=== PATIENT | female | born 1990 | race Caucasian/White ===

== ENCOUNTER 2022-01-16 11:15 | Outpatient (RCR) | payer OTHER, SELFPAY ==
--- NOTE | 2021-12-16 09:29 | PC.NURSE ---
Patient did not show up to community morning meeting and did not call staff by 0915. Patient called at 0925 and spoke to Eva stating she did not understand the email that was sent to her. Patient scheduled to start the program tomorrow at 0900. Polly [facility] is aware.
[2021-12-17 12:47] VITALS: BMI 52.2
--- NOTE | 2021-12-17 13:18 | PC.ADMIT ---
Patient is a 31 year old single female with a dx of MDD recurrent, severe who was referred by her prescriber from [facility] to PHP d/t increase in depression with passive SI no plan or intent, increased anxiety and PTSD sxs. Patient reports poor sleep and appetite. Reports she is taking a leave of absence from work to work on her mental health. 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 Patient reports she has been isolating. Patient denied history of SA or IPLOC. Patient reports this past April she had thoughts to overtake her Clonazepam medications however patient stated, the thoughts freaked me out and I called my mother immediately . Patient stated she has no intent as there are things she wants to do in life. Patient has a history of trauma. Patient is alert and oriented x4. Calm and cooperative. Presents with depressed mood and affect. Denied SI at present. Emailed patient a copy of her safety plan if needed. Patient also has the crisis number if needed. Patient reports her mother who lives [address] from her is supportive. Medications reconciled with patient and patient's pharmacy. Patient reports taking her medications as prescribed.
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
--- NOTE | 2021-12-18 13:05 | PM.EVENT ---
Event Note Date of Service: 12/18/21 Event Note: Letter provided to patient for medical leave, per patient's request.
--- NOTE | 2021-12-19 08:07 | PC.NURSE ---
case opened in treatment team
--- NOTE | 2021-12-24 14:15 | HO.PHPPROGNO ---
Subjective Subjective Date of Service: 12/24/21 Reason For Visit: depression,anxiety,OCD Guardianship: No Medical Problems Affecting Mental Status: No Interim History: Describes mood as ?I am okay, I feel a little bit better ?. Reports she feels current medication regimen is working well, does not want any changes. No SI reported, no safety concerns. Medication Compliance: Yes Side effects from medications: No Attending Groups: Yes Review of Systems Acute medical concerns: No Medical Review of Systems: unchanged Review of Systems Review of Systems Yes all other systems are reviewed and are negative Constitutional: Reports no additional constitutional complaints Mental Status Exam Mental Status Exam Narrative: NAD. No perceptual disturbances noted, fully attentive during encounter. No SI/HI reported, no safety concerns. Patient Appearance: Well Grooomed and Appropriate Patient Orientation: Person, Place, Time and Situation Level of Consciousness: Awake, Appropriate and Alert Patient Behavior: Appropriate, Cooperative and Good Eye Contact Mood Description: Depressed and Anxious Affect Description: Depressed Patient Cognition Impaired: No Ability to Follow Directions: Good Speech Pattern: Clear, Appropriate and Coherent Hallucinations: None Delusions: Not Present Perceptual Disturbances: Depersonalization Thought Process: Intact Depressive Symptoms: Increased Anxiety, Difficulty Sleeping, Loss of Int. in Activity, Isolating-Friends/Family, Feelings of Guilt, Unhappiness and Increased Fatigue Judgement: Fair Diagnostics Vital Signs (24Hr): BMI result Body Mass Index 52.2 Assessment & Plan Assessment & Plan (1) Major depressive disorder, single episode, severe without psychotic features: Status: Acute Code(s): F32.2 - Major depressive disorder, single episode, severe without psychotic features Assessment and Plan: Patient reports she feels she is beginning to improve regarding her symptoms of depression, anxiety, OCD. She states she is finding groups helpful. No SI/HI reported. Reports that she feels current medication regimen is effective, does not want any changes at this time. Plans to continue with groups/program, as it is helping. (2) Generalized anxiety disorder: Status: Acute Code(s): F41.1 - Generalized anxiety disorder (3) Post-traumatic stress disorder, chronic: Status: Acute Code(s): F43.12 - Post-traumatic stress disorder, chronic (4) Obsessive-compulsive disorder, unspecified: Status: Acute Code(s): F42.9 - Obsessive-compulsive disorder, unspecified Plan 1. Continue with current [facility] plan of care. 2. Continue with current medication regimen as prescribed by outpatient provider. 3. Follow-up as per protocol. Patient educated on: diagnosis, medication risk/benefits and therapeutic strategies Informed Consent: understands Reason for contiued partial hosp. stay Substantial Risk for: harm to self, inability to function and med/psych decompensation Certification I certify that partial hospital treatment is medically necessary due to the symptoms and problems resulting from the patient's mental illness and the failure to treat the patient at the partial hospital level of care would likely result in the patient requiring inpatient psychiatric care which could not be prevented at a less intensive level of care. I spent minutes with the patient and/or on the patient floor today, greater than?50% of which was spent counseling/coordinating care. Discharge Plan Discharge Attending provider: Moses Villatoro Medications: No Action desog-e.estradiol/e.estradiol [Kariva (28)] 0.15-0.02 mgx21 /0.01 mg x 5 Tablet 1 tab PO DAILY 0RF clonazepam 1 mg Tablet 1 mg PO BID PRN (Reason: Anxiety) 0RF omeprazole 40 mg Capsule,Delayed Release(Dr/Ec) 40 mg PO DAILY 0RF fluvoxamine 100 mg Tablet 100 mg PO BID 0RF fluticasone propionate 50 mcg/actuation [place],Suspension 2 spray INTRANASAL DAILY 0RF Rx Instructions: administer into each nostril bupropion HCl [Wellbutrin XL] 150 mg Tablet Extended Release 24 Hr 150 mg PO QAM 0RF eszopiclone 1 mg Tablet 1 mg PO BEDTIME 0RF Label Comments: Patient has not started. melatonin 5 mg Tablet 5 mg PO BEDTIME PRN (Reason: Insomnia) 0RF cholecalciferol (vitamin D3) [Vitamin D3] 125 mcg (5,000 unit) Tablet 125 mcg PO DAILY 0RF Telehealth Telehealth Location of provider rendering services: practice address Location of patient: address on file Patient Identification confirmed using: Name, : Yes Telehealth method: video Patient verbally consented to treatment: Yes Patient verbally consented to billing insurance company: Yes Patient informed of any privacy concerns related to visit: Yes Minutes spent on Phone/Video with Pt.: 15
--- NOTE | 2021-12-26 14:59 | PC.NURSE ---
I called [facility] because the clients therapist left the agency and made a referral for another but it is taking a long time to secure a new therapist. I left a message with the clinical director , Juana chaparro, explaining that the client will be discharged from [facility] 01/02/22 and if possible we will need to have an appointment scheduled with a therapist by then.
--- NOTE | 2021-12-29 15:20 | P.PNPSP_ITS ---
Subjective Subjective Date of Service: 12/29/21 Reason For Visit: depression,anxiety,OCD Medical Problems Affecting Mental Status: No Interim History: Describes mood as ?not doing great ?. Reports sleeping all day, due to poor sleep during night. Nightmares. States increased anxiety, afraid to leave house, afraid to go back to work, cannot even grocery shop. Describes feeling like a failure, hopeless, helpless. Medication Compliance: Yes Side effects from medications: No Attending Groups: Yes Review of Systems Acute medical concerns: No Medical Review of Systems: unchanged Review of Systems Review of Systems Yes all other systems are reviewed and are negative Constitutional: Reports no additional constitutional complaints Mental Status Exam Mental Status Exam Narrative: NAD. No SI/HI reported, no safety concerns. Patient Appearance: Well Grooomed and Appropriate Patient Orientation: Person, Place, Time and Situation Level of Consciousness: Awake, Appropriate and Alert Patient Behavior: Appropriate, Cooperative and Good Eye Contact Mood Description: Depressed and Anxious Affect Description: Depressed and Anxious Patient Cognition Impaired: No Ability to Follow Directions: Good Speech Pattern: Clear, Appropriate and Coherent Memory Description: Intact Hallucinations: None Delusions: Not Present Perceptual Disturbances: Depersonalization Thought Process: Intact Thought Content: positive for Intact Depressive Symptoms: Increased Anxiety, Difficulty Sleeping, Loss of Int. in Activity, Hopelessness, Isolating-Friends/Family, Feelings of Guilt, Unhappiness, Increased Fatigue and Loss of Energy Judgement: Fair Diagnostics Vital Signs (24Hr): BMI result Body Mass Index 52.2 Assessment & Plan Assessment & Plan (1) Major depressive disorder, single episode, severe without psychotic features: Status: Acute Code(s): F32.2 - Major depressive disorder, single episode, severe without psychotic features Assessment and Plan: Reports feeling overwhelmed, difficulty sleeping, which is affecting her mood. Reports she has been told that she cannot make an appointment at [facility] until programs over here. We discussed various medications, she has taking Abilify as an adjunct of medication for long time, was weaned off of it due to side effects. We discussed several options, including switching both doses of Luvox to bedtime, to see if it helps improve sleep, or adding low-dose Risperdal 0.5 mg at bedtime. She was willing to try Risperdal at this time. Patient also has [facility] paperwork to be completed. (2) Generalized anxiety disorder: Status: Acute Code(s): F41.1 - Generalized anxiety disorder Assessment and Plan: Reports increased anxiety, panic, agoraphobia. Discussed Wellbutrin, reports has been taking Wellbutrin past 6 months, and this has been recent. Does have p.r.n. Klonopin, has been utilizing. (3) Post-traumatic stress disorder, chronic: Status: Acute Code(s): F43.12 - Post-traumatic stress disorder, chronic Assessment and Plan: Nightmares, racing thoughts, related to PTSD. Discussed adding low-dose Risperdal at bedtime, as it will help with racing thoughts, sleep. (4) Obsessive-compulsive disorder, unspecified: Status: Acute Code(s): F42.9 - Obsessive-compulsive disorder, unspecified Assessment and Plan: Reports Luvox is working well to manage OCD symptoms at this time. Plan 1. Continue with current [facility] plan of care. 2. Start risperidone 0.5 mg at bedtime. 3. Will follow-up as per protocol. Patient educated on: diagnosis, medication risk/benefits and therapeutic strategies Informed Consent: understands Reason for contiued partial hosp. stay Substantial Risk for: harm to self, inability to function, rapid decompensation and med/psych decompensation Certification I certify that partial hospital treatment is medically necessary due to the symptoms and problems resulting from the patient's mental illness and the failure to treat the patient at the partial hospital level of care would likely result in the patient requiring inpatient psychiatric care which could not be prevented at a less intensive level of care. I spent minutes with the patient and/or on the patient floor today, greater than?50% of which was spent counseling/coordinating care. Discharge Plan Discharge Attending provider: Moses Villatoro Medications: New risperidone 0.5 mg tablet 0.5 mg PO BEDTIME 7 Days Qty: 7 0RF No Action desog-e.estradiol/e.estradiol [Ociva (28)] 0.15-0.02 mgx21 /0.01 mg x 5 Tablet 1 tab PO DAILY 0RF clonazepam 1 mg Tablet 1 mg PO BID PRN (Reason: Anxiety) 0RF omeprazole 40 mg Capsule,Delayed Release(Dr/Ec) 40 mg PO DAILY 0RF fluvoxamine 100 mg Tablet 100 mg PO BID 0RF fluticasone propionate 50 mcg/actuation [place],Suspension 2 spray INTRANASAL DAILY 0RF Rx Instructions: administer into each nostril bupropion HCl [Wellbutrin XL] 150 mg Tablet Extended Release 24 Hr 150 mg PO QAM 0RF eszopiclone 1 mg Tablet 1 mg PO BEDTIME 0RF Label Comments: Patient has not started. melatonin 5 mg Tablet 5 mg PO BEDTIME PRN (Reason: Insomnia) 0RF cholecalciferol (vitamin D3) [Vitamin D3] 125 mcg (5,000 unit) Tablet 125 mcg PO DAILY 0RF Telehealth Telehealth Location of provider rendering services: practice address Location of patient: address on file Patient Identification confirmed using: Name, : Yes Telehealth method: video Patient verbally consented to treatment: Yes Patient verbally consented to billing insurance company: Yes Patient informed of any privacy concerns related to visit: Yes Minutes spent on Phone/Video with Pt.: 15
--- NOTE | 2022-01-02 14:43 | PC.NURSE ---
I called the client to check in. She states that she feels staying out staying out yesterday impeded her progress. We discussed staying until 01/08.
--- NOTE | 2022-01-06 15:16 | P.PNPSP_ITS ---
Subjective Subjective Date of Service: 01/06/22 Reason For Visit: depression,anxiety,OCD Medical Problems Affecting Mental Status: No Interim History: Reports ?feeling pretty anxious today ?. Reports having a good weekend, and then beginning to feel anxiety yesterday and today. Continues with overall dysphoric mood, states current Wellbutrin is not working well to manage depression. Utilizing risperidone, reports that is working well. Having difficulty with sleep/nightmares, r/t PTSD. No SI/HI, no safety concerns. Medication Compliance: Yes Side effects from medications: No Attending Groups: Yes Review of Systems Acute medical concerns: No Medical Review of Systems: unchanged Review of Systems Review of Systems Yes all other systems are reviewed and are negative Constitutional: Reports no additional constitutional complaints Mental Status Exam Mental Status Exam Narrative: NAD. No SI/HI reported, no safety concerns. Patient Appearance: Well Grooomed and Appropriate Patient Orientation: Person, Place, Time and Situation Level of Consciousness: Awake, Appropriate and Alert Patient Behavior: Appropriate, Cooperative and Good Eye Contact Mood Description: Depressed and Anxious Affect Description: Depressed and Anxious Patient Cognition Impaired: No Ability to Follow Directions: Good Speech Pattern: Clear, Appropriate and Coherent Memory Description: Intact Hallucinations: None Delusions: Not Present Perceptual Disturbances: Depersonalization Thought Process: Intact Thought Content: positive for Intact Depressive Symptoms: Increased Anxiety, Difficulty Sleeping (nightmares, hypervigilance at night), Loss of Int. in Activity, Isolating-Friends/Family, Feelings of Guilt, Unhappiness, Increased Fatigue and Loss of Energy Judgement: Fair Diagnostics Vital Signs (24Hr): BMI result Body Mass Index 52.2 Assessment & Plan Assessment & Plan (1) Major depressive disorder, single episode, severe without psychotic features: Status: Acute Code(s): F32.2 - Major depressive disorder, single episode, severe without psychotic features Assessment and Plan: Reports ?feeling pretty anxious today ?. Reports having a good weekend, and then beginning to feel anxiety yesterday and today. Continues with dysphoric mood. We discussed several options. One was to increase Wellbutrin, or change antidepressant. It was recommended that she try an increase in dose prior to making any other changes. She was agreeable to this. Utilizing risperidone, reports that is working well. Finding it helpful for intrusive thoughts. Having difficulty with sleep/nightmares, r/t PTSD. We discussed adding low-dose prazosin, she is willing to try this. No SI/HI, no safety concerns. (2) Generalized anxiety disorder: Status: Acute Code(s): F41.1 - Generalized anxiety disorder Assessment and Plan: Reports feeling increased anxiety, states that she is having difficulty at night regarding to symptoms of PTSD. She is currently not taking the Lunesta, and has no intention to take it. (3) Post-traumatic stress disorder, chronic: Status: Acute Code(s): F43.12 - Post-traumatic stress disorder, chronic Assessment and Plan: Increased symptoms especially at night, nightmares, hypervigilance, exaggerated startle response, feeling hyper arousal. Willing to try low-dose prazosin. (4) Obsessive-compulsive disorder, unspecified: Status: Acute Code(s): F42.9 - Obsessive-compulsive disorder, unspecified Assessment and Plan: OCD symptoms are being well managed with Luvox at this time. Plan 1. Continue with current [facility] plan of care. 2. Increase Wellbutrin to 300 mg XL daily. 3. Start prazosin 1 mg at bedtime. 4. D/c lundesta. 5. Follow-up as per protocol. Patient educated on: diagnosis, medication risk/benefits and therapeutic strategies Informed Consent: understands Reason for contiued partial hosp. stay Substantial Risk for: harm to self, inability to function, rapid decompensation and med/psych decompensation Certification I certify that partial hospital treatment is medically necessary due to the symptoms and problems resulting from the patient's mental illness and the failure to treat the patient at the partial hospital level of care would likely result in the patient requiring inpatient psychiatric care which could not be prevented at a less intensive level of care. I spent minutes with the patient and/or on the patient floor today, greater than?50% of which was spent counseling/coordinating care. Discharge Plan Discharge Attending provider: Moses Villatoro Medications: New risperidone 0.5 mg tablet 0.5 mg PO BEDTIME 7 Days Qty: 7 0RF No Action desog-e.estradiol/e.estradiol [Ociva (28)] 0.15-0.02 mgx21 /0.01 mg x 5 Tablet 1 tab PO DAILY clonazepam 1 mg Tablet 1 mg PO BID PRN (Reason: Anxiety) omeprazole 40 mg Capsule,Delayed Release(Dr/Ec) 40 mg PO DAILY fluvoxamine 100 mg Tablet 100 mg PO BID fluticasone propionate 50 mcg/actuation [place],Suspension 2 spray INTRANASAL DAILY Rx Instructions: administer into each nostril bupropion HCl [Wellbutrin XL] 150 mg Tablet Extended Release 24 Hr 150 mg PO QAM eszopiclone 1 mg Tablet 1 mg PO BEDTIME Label Comments: Patient has not started. melatonin 5 mg Tablet 5 mg PO BEDTIME PRN (Reason: Insomnia) cholecalciferol (vitamin D3) [Vitamin D3] 125 mcg (5,000 unit) Tablet 125 mcg PO DAILY Telehealth Telehealth Location of provider rendering services: practice address Location of patient: address on file Patient Identification confirmed using: Name, : Yes Telehealth method: video Patient verbally consented to treatment: Yes Patient verbally consented to billing insurance company: Yes Patient informed of any privacy concerns related to visit: Yes Minutes spent on Phone/Video with Pt.: 15
--- NOTE | 2022-01-12 15:23 | P.PNPSP_ITS ---
Subjective Subjective Date of Service: 01/12/22 Reason For Visit: depression,anxiety,OCD Medical Problems Affecting Mental Status: No Interim History: Reports mood as ?I am okay ?. No SI/HI, no safety concerns. Medication Compliance: Yes Side effects from medications: No Attending Groups: Yes Review of Systems Acute medical concerns: No Medical Review of Systems: unchanged Review of Systems Review of Systems Yes all other systems are reviewed and are negative Constitutional: Reports no additional constitutional complaints Mental Status Exam Mental Status Exam Narrative: NAD. No SI/HI reported, no safety concerns. Patient Appearance: Appropriate Patient Orientation: Person, Place, Time and Situation Level of Consciousness: Appropriate Patient Behavior: Appropriate, Cooperative and Good Eye Contact Mood Description: Appropriate Affect Description: Depressed and Flat Patient Cognition Impaired: No Ability to Follow Directions: Good Speech Pattern: Clear, Appropriate and Coherent Memory Description: Intact Hallucinations: None Delusions: Not Present Perceptual Disturbances: Depersonalization Thought Process: Intact Thought Content: positive for Intact Depressive Symptoms: Increased Anxiety, Loss of Int. in Activity, Feelings of Guilt and Unhappiness Judgement: Fair Diagnostics Vital Signs (24Hr): BMI result Body Mass Index 52.2 Assessment & Plan Assessment & Plan (1) Major depressive disorder, single episode, severe without psychotic features: Status: Acute Code(s): F32.2 - Major depressive disorder, single episode, severe without psychotic features Assessment and Plan: Patient describes mood as ?I am okay ?. Reports that she is experiencing some anger today, trying to process it, states that she needs some quiet time. Reports that she feels completely safe, no thoughts of harm to self or others. Reports that the increased Wellbutrin is working well, no side effects reported. Still continues with some dysphoric mood, although feeling some improvement. Prazosin working well, reports less PTSD symptoms/nightmares. Reports risperidone is also helping to manage symptoms, wishes to keep it at this time. (2) Generalized anxiety disorder: Status: Acute Code(s): F41.1 - Generalized anxiety disorder (3) Post-traumatic stress disorder, chronic: Status: Acute Code(s): F43.12 - Post-traumatic stress disorder, chronic (4) Obsessive-compulsive disorder, unspecified: Status: Acute Code(s): F42.9 - Obsessive-compulsive disorder, unspecified Plan 1. Continue with current [facility] plan of care. 2. Refills for Wellbutrin, prazosin, 30 day supply of each, sent to pharmacy. 3. Continue with current medication regimen. 4. Follow-up as per protocol. Patient educated on: diagnosis, medication risk/benefits and therapeutic strategies Informed Consent: understands Reason for contiued partial hosp. stay Substantial Risk for: inability to function, rapid decompensation and med/psych decompensation Certification I certify that partial hospital treatment is medically necessary due to the symptoms and problems resulting from the patient's mental illness and the failure to treat the patient at the partial hospital level of care would likely result in the patient requiring inpatient psychiatric care which could not be prevented at a less intensive level of care. I spent minutes with the patient and/or on the patient floor today, greater than?50% of which was spent counseling/coordinating care. Discharge Plan Discharge Attending provider: Moses Villatoro Medications: New risperidone 0.5 mg tablet 0.5 mg PO BEDTIME 30 Days Qty: 30 0RF prazosin 1 mg capsule 1 mg PO BEDTIME 30 Days Qty: 30 0RF bupropion HCl 300 mg tablet extended release 24 hr 300 mg PO QAM 30 Days Qty: 30 0RF Discontinued bupropion HCl [Wellbutrin XL] 150 mg Tablet Extended Release 24 Hr 150 mg PO QAM eszopiclone 1 mg Tablet 1 mg PO BEDTIME Label Comments: Patient has not started. No Action desog-e.estradiol/e.estradiol [Ociva (28)] 0.15-0.02 mgx21 /0.01 mg x 5 Tablet 1 tab PO DAILY clonazepam 1 mg Tablet 1 mg PO BID PRN (Reason: Anxiety) omeprazole 40 mg Capsule,Delayed Release(Dr/Ec) 40 mg PO DAILY fluvoxamine 100 mg Tablet 100 mg PO BID fluticasone propionate 50 mcg/actuation [place],Suspension 2 spray INTRANASAL DAILY Rx Instructions: administer into each nostril melatonin 5 mg Tablet 5 mg PO BEDTIME PRN (Reason: Insomnia) cholecalciferol (vitamin D3) [Vitamin D3] 125 mcg (5,000 unit) Tablet 125 mcg PO DAILY Stand Alone Forms: Patient Portal Discharge page Telehealth Telehealth Location of provider rendering services: practice address Location of patient: address on file Patient Identification confirmed using: Name, : Yes Telehealth method: video Patient verbally consented to treatment: Yes Patient verbally consented to billing insurance company: Yes Patient informed of any privacy concerns related to visit: Yes Minutes spent on Phone/Video with Pt.: 15
--- NOTE | 2022-01-15 09:38 | PC.NURSE ---
Joelle stated Tara called out sick from the program today.
--- NOTE | 2022-01-16 14:57 | PC.NURSE ---
Patient discharged from the program today. I called patient and left her a message to review her medications and discharge status. Awaiting for patient to call me back.
== END 2022-01-16 23:59 | disposition home or self-care (01) ==
LOC: HO.PHPA 11:15
PROVIDERS: Visit Provider Psychiatry & Neurology Psychiatry
DX: F32.2 Major depressive disorder, single episode, severe without psychotic features (principal); F41.1 Generalized anxiety disorder; F43.12 Post-traumatic stress disorder, chronic; F42.9 Obsessive-compulsive disorder, unspecified; Z79.899 Other long term (current) drug therapy
CPT/HCPCS: 90791; 90853

== ENCOUNTER 2025-02-07 09:40 | Outpatient (AMB) | payer OTHER, SELFPAY ==
--- OUTSIDE RECORDS SUMMARY | 2025-02-07 10:17 | XMS_ITS | Referral Summary ---
Author Organization [facility] Address [address] [place] [address] Care Team Providers Care Urgent Care Technician Name Role Phone Alonso Mahajan Primary Care Provider [phone] Allergies Active Allergy Reactions Criticality Noted Date Comments Morphine Hives,Swelling High 09/12/2018 Medications MULTIVITAMIN ORAL Take by mouth. Active clonazePAM (KlonoPIN) 0.5 mg tablet TAKE 1 TABLET BY MOUTH EVERY MORNING AND 1 TAB AT BEDTIME 1 Active gabapentin (NEURONTIN) 100 mg capsule Take 200 mg by mouth 3 times daily. 1 Active desog-e.estradioL/e. estradioL (KARIVA) 0.15-0.02 mgx21 /0.01 mg x 5 per tablet TAKE 1 TABLET BY MOUTH EVERY DAY SKIP [place] TABLETS 1 Active loperamide (IMODIUM A-D) 2 mg tablet Take 2 mg by mouth 3 times daily as needed. Hasn't picked up RX 1 Active omeprazole (PriLOSEC) 40 mg capsule Take 40 mg by mouth daily. 1 Active ondansetron (ZOFRAN) 4 mg tablet 1 Active ARIPiprazole (ABILIFY) 15 mg tablet Take 15 mg by mouth daily. 1 Active sertraline (ZOLOFT) 100 mg tablet Take 200 mg by mouth daily. 1 Active levocetirizine dihydrochloride (XYZAL ORAL) Take by mouth once a day. Active buPROPion XL (WELLBUTRIN XL) 150 mg tablet TAKE 1 TABLET BY MOUTH EVERY DAY IN THE MORNING 1 Active Active Problems Problem Noted Date Diagnosed Date Functional bowel disorder 01/08/2021 Assessment & Plan (01/08/2021 4:09 PM EDT): Patient very likely has a functional bowel disorder but there is enough here to evaluate for organic disease. She has a family history of Crohn's and is the right demographic for it. She was recently started on antidepressant and side effects could be diarrhea and/or can trigger microscopic colitis. For assessment of this will get a colonoscopy. She gives a history of GERD/reflux which was well managed with omeprazole. With progressive weight gain however it seems her symptoms have worsened to the point where omeprazole is no longer effective even at twice daily dosing. This could be a function of a new or worsening hiatal hernia. However with the change that she describes it may be worth doing an upper endoscopy to evaluate for this. This will also allow me to evaluate for eosinophilic esophagitis, H. pylori and celiac disease. I will get some blood work including celiac disease panel. I am getting get a CBC to evaluate for elevated white count or anemia which may indicate any inflammatory process. We will also get a CRP. Get a BMP. Will obtain LFTs to evaluate for biliary colic. She did have some tenderness in epigastric palpation and describes upper abdominal pain (she has risk factors due to her gender and age as well as body habitus for cholelithiasis). In the meantime she can certainly take the Zofran and Imodium (I do not think that this is infectious diarrhea) Social History Tobacco Use Types Packs/Day Years Used Date Smoking Tobacco: Former Cigarettes 0 07/2013 - 06/2014 Smokeless Tobacco: Never Comments No Sex and Gender Information Value Date Recorded Sex Assigned at Not on file Legal Sex Female 12:04 AM EDT Gender Identity Not on file Sexual Orientation Not on file Last Filed Vital Signs Vital Sign Reading Time Taken Comments Blood Pressure 127/72 2021 9:15 AM EDT Pulse 85 2021 9:15 AM EDT Temperature 36.2 C (97.2 F) 2021 9:15 AM EDT Respiratory Rate 21 2021 9:15 AM EDT Oxygen Saturation 98% 2021 9:15 AM EDT Inhaled Oxygen Concentration - - Weight 137.9 kg (304 lb) 01/09/2021 4:48 PM EDT Height 160 cm (5' 3 ) 01/09/2021 4:48 PM EDT Body Mass Index 53.85 01/09/2021 4:48 PM EDT Plan of Treatment Not on file Insurance [facility] Care Teams Urgent Care Technician Relationship Specialty Start Date End Date Alonso Mahajan [facility] [address], [place] [id number] PCP - General Internal Medicine 01/06/21
--- OUTSIDE RECORDS SUMMARY | 2025-02-07 10:17 | XMS_ITS | Data Portability ---
Author Organization [employer], [address] Address [address] [place] [address] Care Team Providers Care Household Appliance Installer Name Role Phone NBA DAVILA Primary Care Provider [phone] Assessment No assessment recorded. Plan of Treatment Reminders Order Date Submit Date Provider Last Modified By Organization Details Last Modified Time Details Appointments None recorded. Lab rapid strep group A, throat 2022 023 [place] [id number], [address] [place] [address], [phone], 3 13:45:25 rapid flu (A+B) 2022 023 [place] [address], [address] [place] [address], [phone], 3 13:45:14 rapid SARS CoV 2 Ag, QL IA, respiratory specimen [address], [address] [place] [address], [phone], 3 13:45:14 Referral None recorded. Procedures None recorded. Surgeries None recorded. Imaging None recorded. Medication Orders amoxicillin 875 mg tablet 2022 023 [id number], [address] [place], [address], 3 13:45:18 albuterol sulfate HFA 90 mcg/actuati on aerosol inhaler 2022 023 [id number], [address] [facility], [place], [address], 13:24:38 Patient TargetsNo targets recorded. Patient Instructions Encounter Date Encounter Id Patient Instructions Last Modified By Organization Details Last Modified Time 12/14/2022 [id number] cough: care instructions [place] [address] Not available 12/14/2022 13:45:14 Reason for Referral None Reported. Results Created Date Observation Date Name Description Value Unit Range Abnormal Flag Note LastModifiedBy Organization Detail LastModifiedTime 12/15/1912/14/2022 rapid SARS CoV 2 Ag, QL IA, respi rator y speci men Unknown Analyte Normal =Negat day Not Available [facility], [phone], 12/14/2022 12:36:15 12/15/19 23 12/14/2022 rapid SARS CoV 2 Ag, QL IA, respi rator y speci men Unknown Analyte negati ve Not Available [address] [place] [address], [phone], 12/14/2022 12:36:15 12/15/19 23 12/14/2022 rapid flu (A+B) Unknown Analyte Normal = Negati ve Not Available [address] [place] [address], [phone], 12/14/2022 12:36:05 12/15/19 23 12/14/2022 rapid flu (A+B) Unknown Analyte Normal = Negati ve Not Available [address] [place] [address], [phone], 12/14/2022 12:36:05 12/15/19 23 12/14/2022 rapid flu (A+B) Unknown Analyte negati ve Not Available [address] [place], [place] [address] [place], [address], 12/14/2022 12:36:05 12/15/19 23 12/14/2022 rapid flu (A+B) Unknown Analyte negati ve Not Available [facility] [address] [place] [address], [phone], 12/14/2022 12:36:05 Result Notes None recorded. Problems Name Problem SNOMED Code Status Onset Date Resolution Date Notes Provider Name and Address Organization Details Recorded Time Arthritis 8194607 Active 2022 LORAINE SANTOS null, PA - [facility] 3 12:31:46 Migraine 53532929 Active 2022 LORAINE SANTOS null, PA - [facility] 3 12:31:59 Gastroesophage al reflux disease 303450375 Active 2022 LORAINE SANTOS null, PA - [facility] 3 12:32:18 Anxiety 90107848 Active 2022 LORAINE SANTOS null, PA - [facility] 3 12:32:25 Depressive disorder 94699760 Active 2022 LORAINE SANTOS null, PA - [facility] 3 12:32:30 Posttraumatic stress disorder 56976454 Active 2022 LORAINE SANTOS null, PA - [facility] 3 12:32:36 Anemia 056019027 Active 2022 LORAINE SANTOS null, PA - [facility] 3 12:34:15 Problem Notes None recorded. Procedures Surgical History Date Name Laterality Status Provider Name and Address Organization Details Recorded Time Remove tonsils and adenoids completed LORAINE SANTOS PA - [facility] 12/14/2022 12:33:11 procedure on knee completed LORAINE SANTOS PA - [facility] 12/14/2022 12:33:42 Imaging Results None recorded. Procedure Notes None recorded. Medical Equipment None Reported. Allergies Allergen ID Allergen Name Allergen Category Reaction Reaction Severity Criticality Documentation Date Start Date Code Code System Note Provider Name and Address Organization Details Recorded Time 720598 morphine medicatio n Not available Not available Not available 12/14/2022 7052 [facility] Hopper - [facility] 3 12:30:27 Medications Name Sig Start Date Stop Date Status Note LastModified by Organization Details LastModified Time cyclobenzapr ine 10 mg tablet 1 TABLET BY MOUTH 3 TIMES A DAY FOR 10 DAYS NEEDED FOR SPASM active Not Available Not Available No t Available venlafaxine ER 75 mg capsule,exte nded release 24 hr TAKE 1 CAPSULE BY MOUTH EVERY DAY DIRECTED active Not Available Not Available No t Available prazosin 1 mg capsule TAKE 1 CAPSULE BY MOUTH EVERY DAY AT BEDTIME DIRECTED active Not Available Not Available No t Available prednisone 20 mg tablet TAKE 2 TABLETS BY MOUTH EVERY DAY FOR 5 DAYS active Not Available Not Available No t Available clonazepam 1 mg tablet TAKE 1 TABLET BY MOUTH THREE TIMES A DAY DIRECTED active Not Available Not Available Not Available venlafaxine ER 150 mg capsule,exte nded release 24 hr TAKE 1 CAPSULE BY MOUTH EVERY DAY DIRECTED active Not Available Not Available No t Available sumatriptan 50 mg tablet TAKE 1 TAB DAILY NEEDED FOR MIGRAINE (MAY REPEAT DOSE AFTER 2 HOURS UP TO A MAX OF 2 IN 24 HRS) active Not Available Not Available No t Available omeprazole 40 mg capsule,alvina yed release TAKE 1 CAPSULE BY MOUTH EVERY DAY active Not Available Not Available No t Available amoxicillin 875 mg tablet Take 1 tablet every 12 hours by oral route for 10 days. 2022 active Not Available Not Available Not Avai lable topiramate 25 mg sprinkle capsule active Not Available Not Available Not Available fluvoxamine 100 mg tablet TAKE 1 TABLET BY MOUTH TWICE A DAY DIRECTED active Not Available Not Available No t Available albuterol sulfate HFA 90 mcg/actuatio n aerosol inhaler Inhale 2 puffs every 4 hours by inhalation route as needed for 5 days. 2022 active Not Available Not Available Not Avai lable naratriptan 2.5 mg tablet PLEASE SEE ATTACHED FOR DETAILED DIRECTIONS active Not Available Not Available N ot Available risperidone 0.5 mg tablet TAKE 1 TABLET BY MOUTH EVERY DAY AT BEDTIME DIRECTED active Not Available Not Available No t Available Kariva (28) 0.15 mg-0.02 mg (21)/0.01 mg (5) tablet TAKE 1 TABLET BY MOUTH EVERY DAY SKIP PLACEBO TABLETS active Not Available Not Available No t Available bupropion HCl XL 300 mg 24 hr tablet, extended release TAKE 1 TABLET BY MOUTH 1 TIME PER DAY NOTE INCREASE IN DOSE active Not Available Not Available No t Available bupropion HCl XL 150 mg 24 hr tablet, extended release TAKE 1 TABLET BY MOUTH EVERY MORNING DIRECTED FOR 7 DAYS THEN STOP active Not Available Not Available No t Available Vitals Date Recorded Heart rate Oxygen saturation Oxygen saturation in Arterial blood by Pulse oximetry Provider Name and Address Organization Details Last Updated DateTime 12/14/2022 105 /min 98 % 98 % Solis Nixon MD [address] [place], [address], [place] [facility] 12/14/2022 13:42:27 Date Recorded Body height Body mass index (BMI) Body weight Body temperature Respiratory rate Oxygen saturation Oxygen saturation in Arterial blood by Pulse oximetry Heart rate Systolic And Diastolic Provider Name and Address Organization Details Last Updated DateTime 3 160.02 cm 53.1 kg/m2 610936. 71 g 97.6 [degF] 18 /min 96 % 96 % 109 /min 128/87 mm[Hg] LORAINE SANTOS PA [facility] 3 12:35:40 Social History Question Answer Notes LastModified by Organization D etails LastModified Time Have You Had Direct Contact, Or Contact During Intimacy, With Monkeypox Rash, Scabs, Or Body Fluids From A Person With Monkeypox? No Information not available 12/14/2022 Have You Recently Traveled Abroad? No Information not available 12/14/2022 Are You Currently In School? No Information not available 12/14/2022 Sex: Unknown Functional Status Question Answer Note LastModified by Organizat ion Details LastModified Time Do you use any illicit or recreational drugs? No Information not available 12/14/2022 Do you or have you ever used any other forms of tobacco or nicotine? No Information not available 12/14/2022 What is your level of alcohol consumption? Occasional Information not available 12/14/2022 Are you currently employed? Yes Information not available 12/14/2022 Mental Status None recorded. Family History Relationship Description Onset Age of this Age Resolved Age Notes LastModified by Organization Details LastModified Time Father No current problems or disability Not available 11/24 12:32:40 Mother No current problems or disability Not available 11/24 12:32:40 Medical History No medical history recorded. Gynecological HistoryNo gynecological history recorded. Obstetrics History GPAL:G 0 P 0 0 0 0 Immunizations Vaccine Type Date Status Note Provider Nam e and Address Organization Details Recorded Time IPV 2 completed LORAINE GOODHIND null, PA - [facility] 12/14/2022 12:30:17 IPV 3 completed LORAINE GOODHIND null, PA - [facility] 12/14/2022 12:30:17 IPV 7 completed LORAINE GOODHIND null, PA - [facility] 12/14/2022 12:30:17 IPV 6 completed LORAINE GOODHIND null, PA - [facility] 12/14/2022 12:30:17 IPV 1 completed LORAINE GOODHIND null, PA - [facility] 12/14/2022 12:30:17 Influenza, MDCK, quadrivalent, PF 2 completed LORAINE GOODHIND null, PA - [facility] 12/14/2022 12:30:17 MMR 6 completed LORAINE GOODHIND null, PA - [facility] 12/14/2022 12:30:17 MMR 4 completed LORAINE GOODHIND null, PA - [facility] 12/14/2022 12:30:17 MMR 2 completed LORAINE GOODHIND null, PA - [facility] 12/14/2022 12:30:17 COVID-19, mRNA, LNP-S, PF, 100 mcg/0.5mL dose or 50 mcg/0.25mL dose 1 completed LORAINE GOODHIND null, PA - [facility] 12/14/2022 12:30:17 COVID-19, mRNA, LNP-S, PF, 30 mcg/0.3 mL dose 1 completed LORAINE GOODHIND null, PA - [facility] 12/14/2022 12:30:17 COVID-19, mRNA, LNP-S, PF, 30 mcg/0.3 mL dose 1 completed LORAINE GOODHIND null, PA - [facility] 12/14/2022 12:30:17 COVID-19, mRNA, LNP-S, bivalent, PF, 50 mcg/0.5 mL or 25mcg/0.25 mL dose 2 completed LORAINE GOODHIND null, PA - [facility] 12/14/2022 12:30:17 Tdap 3 completed LORAINE GOODHIND null, PA - [facility] 12/14/2022 12:30:17 DTP 3 completed LORAINE GOODHIND null, PA - [facility] 12/14/2022 12:30:17 DTP 2 completed LORAINE GOODHIND null, PA - [facility] 12/14/2022 12:30:17 DTP 6 completed LORAINE GOODHIND null, PA - [facility] 12/14/2022 12:30:17 DTP 1 completed LORAINE GOODHIND null, PA - [facility] 12/14/2022 12:30:17 DTP 1 completed LORAINE GOODHIND null, PA - [facility] 12/14/2022 12:30:17 Hep B, unspecified formulation 6 completed LORAINE GOODHIND null, PA - [facility] 12/14/2022 12:30:17 Hep B, unspecified formulation 5 completed LORAINE GOODHIND null, PA - [facility] 12/14/2022 12:30:17 Hep B, unspecified formulation 5 completed LORAINE GOODHIND null, PA - [facility] 12/14/2022 12:30:17 OPV 3 completed LORAINE GOODHIND null, PA - [facility] 12/14/2022 12:30:17 OPV 6 completed LORAINE ERICHIND null, PA - [facility] 12/14/2022 12:30:17 OPV 1 completed LORAINE ERICHIND null, PA - [facility] 12/14/2022 12:30:17 OPV 1 completed LORAINE ERICHIND null, PA - [facility] 12/14/2022 12:30:17 Influenza, split virus, trivalent, PF 3 completed LORAINE ERICHIND null, PA - [facility] 12/14/2022 12:30:17 HPV, quadrivalent 8 completed LORAINE ERICHIND null, PA - [facility] 12/14/2022 12:30:17 HPV, quadrivalent 7 completed LORAINE GOODHIND null, PA - [facility] 12/14/2022 12:30:18 HPV, quadrivalent 7 completed LORAINE GOODHIND null, PA - [facility] 12/14/2022 12:30:18 Td (adult), 2 Lf tetanus toxoid, preservative free, adsorbed 3 completed LORAINE ERICHIND null, PA - [facility] 12/14/2022 12:30:18 Hep B, adolescent or pediatric 6 completed LORAINE GOODHIND null, PA - [facility] 12/14/2022 12:30:18 Hep B, adolescent or pediatric 5 completed LORAINE GOODHIND null, PA - [facility] 12/14/2022 12:30:18 Hep B, adolescent or pediatric 5 completed LORAINE ERICHIND null, PA - [facility] 12/14/2022 12:30:18 Hib (HbOC) 2 completed LORAINE ERICHIND null, PA - [facility] 12/14/2022 12:30:18 Hib (HbOC) 1 completed LORAINE SANTOS null, PA - [facility] 12/14/2022 12:30:18 Hib (HbOC) 2 completed LORAINE GOODSMOOTHND null, PA - [facility] 12/14/2022 12:30:18 Hib (HbOC) 1 completed LORAINE ROBLEROND null, PA - [facility] 12/14/2022 12:30:18 meningococcal MCV4P 7 completed LORAINE GOODHIND null, PA - [facility] 12/14/2022 12:30:18 Influenza, split virus, quadrivalent, PF 9 completed LORAINE GOODHIND null, PA - [facility] 12/14/2022 12:30:18 Influenza, split virus, quadrivalent, PF 5 completed LORAINE GOODHIND null, PA - [facility] 12/14/2022 12:30:18 Influenza, split virus, quadrivalent, PF 9 completed LORAINE GOODHIND null, PA - [facility] 12/14/2022 12:30:18 Influenza, split virus, quadrivalent, PF 0 completed LORAINE GOODSMOOTHND null, PA - [facility] 12/14/2022 12:30:18 Influenza, split virus, quadrivalent, PF 1 completed LORAINE GOODHIND null, PA - [facility] 12/14/2022 12:30:18 Past Encounters Encounter ID Performer Location Encounter Start Date Encounter Closed Date Diagnosis/Indication Diagnosis SNOMED-CT Code Diagnosis ICD10 Code Diagnosis Note [id number] Solis Nixon MD [address] [address] [place] [address] 12/14/2022 12:21:10 12/14/2022 13:49:10 Upper respiratory infection 74527884 J06.9 Acute left otitis media 843948698 H66.92 Left ear drum with infectionS tart Amoxicilli n and take daily antihistam ine with Decongesta ntAlso start daily Flonase to help with the sinus pressure Sore throat 394030903 J0 2.9 Dyspnea 948778628 R06.00 Currently not wheezing. The albuterol inhaler is for if you feel short of breath.Ple ase follow up with PCP or Urgent Care in 3-5 days if no improvemen t or if any new symptoms occur that are concerning .Call 911 or go to nearest ER if you develop any shortness of breath, chest pain, severe headache, dizziness, or other concerning symptoms Health Concerns Section Related Observation LastModified by Organization Detai ls LastModified Time None Recorded Concern Status LastModified by Organization Details LastModified Time None Recorded Advance Directives Directive None Recorded Payers Insurance Date Sequence Insurance Name Policy Number Policy Aiken Covered Member ID Aiken Member ID Guarantor Name 12/14/2022 1 [facility] [id number] Tara Silverio [id number] Tara Silverio Notes Date Note Type Note Provider Name and Address Organization Details Recorded Time 12/14/2022 text/html CoughReported bypatient.Notes:Cou gh, dyspnea, congestion, ear pain, hurts to swallow. Started after [employer] concert two nights ago. fever 101 Solis Nixon MD [address] [place], [address], [place] - [facility] 12/15/2022 13:25:25 OBGyn Episode No OBEpisode recorded.
--- NOTE | 2025-02-07 10:42 | A.OFFVIS_ITS ---
Intake Visit Reasons: [facility] [place] Allergies Unable to Assess Allergy (Unverified 12/15/21 15:16) Medication List - Last Reconciled 02/07/25 by Yuliya Herr MD aripiprazole 5 mg PO DAILY clonazepam 1 mg PO BID PRN cyclobenzaprine 10 mg PO TID fluticasone propionate 50 mcg/actuation 2 sprays intranasal DAILY lamotrigine 100 mg PO DAILY levocetirizine (Xyzal) 5 mg PO DAILY melatonin 5 mg PO BEDTIME PRN naratriptan take 1 tab at onset of headache; if no relief may repeat 1 tab after at least 4 hrs; max = 2 tabs/24 hrs PO pantoprazole 40 mg PO DAILY prazosin 1 mg PO BEDTIME 30 days venlafaxine ER 225 mg PO DAILY HPI Comments Details: This is a 35-year-old right-handed woman who 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 During the seizure she would go blank and she felt paralyzed. In her estimate they lasted between 5 and 15 minutes. These seizures stopped at age 17 and have not recurred. She has never had a generalized convulsion. She was seen by Dr. Cain Sanchez at [facility] for this and used to get MRIs of the brain every 6 months and had an EEG the result of which is not available. There was some question of a mitochondrial disorder which was not confirmed. At the same time, starting at age 11 she started having migraine headaches. She has a family history of migraines in her mother and sister. Current migraine frequency for the last 4 years is about twice a week. Most of her migraines now started during sleep when she wakes up with it. When they come on during the waking. She starts to feel tense followed by sharp pains in and around the eyes and at the peak of the migraine she gets some slurring of his speech, unsteady gait and blurred vision all over. She has no nausea vomiting. She gets photophobia and sonophobia throughout the migraine. Her most effective treatment his 2 Excedrin and is cyclobenzaprine taken at the onset of the migraine with which she may be able to abort it in 1-2 hours. At other times she takes the Excedrin followed by naratriptan 2.5 mg and the headache may last 5-6 hours. If untreated, the usual migraine duration is 24-48 hours. The only trigger she has identified is strong perfumes and scents. She tried migraine prophylaxis with propranolol but could not take it because of dizziness and low blood pressure. No other prophylactic medications have been tried. She has tried sumatriptan 50 mg in the past but it made her feel very hot and sensitive so it was stopped. The naratriptan does not work worked very well [facility] Medical History (Updated 02/07/25 @ 10:49 by Yuliya Herr MD) Patellofemoral syndrome Spondylolisthesis at L5-S1 level History of vitamin D deficiency Keratosis pilaris HPV (human papilloma virus) anogenital infection Class 3 severe obesity due to excess calories with body mass index (BMI) of 45.0 to 49.9 in adult History of anemia History of seizure Mitochondrial disease Seasonal allergic reaction Migraine GERD (gastroesophageal reflux disease) Surgical History (Updated 12/23/21 @ 11:06 by Elizabeth Hill RN) H/O arthroscopic knee surgery Hx of tonsillectomy Hx of adenoidectomy Social History Household Members: None Patient Tobacco Use Status: Never used Tobacco Review of Systems Const Details: She reports fatigue and weight gain. She has had allergies and deviated nasal septum with symptoms of stuffiness nosebleeds and sinus pain. Occasional heartb urn. She has some difficulty maintaining sleep. She has some teeth grinding and snores at night with a question of obstructive sleep apnea. In the Psychiatric her review of systems she notes anxiety nervousness depression stress and agitation. She has had some musculoskeletal symptoms of pain muscle and joint pain stiffness back pain and neck pain. She also reports brief vertigo on turning in bed from side to side for the last 1 year. It lasts for a few seconds. Reports headache(s) ENT Reports dizziness and Reports headache(s) Neuro Reports dizziness and Reports headache(s) Physical Exam Neuro Other: ?Neurological Abnormal neurological findings:??none.? Mental Status:?alert and oriented X 3,?Normal attention, orientation, memory and affect.? Cranial Nerves:?Pupils are equal, round and reactive to light. Fundoscopy shows normal disc bilaterally. External occular muscles are intact. Visual rivera are full, no ptosis. Face is symmetrical, no facial weakness or droop. Facial sensations are normal. Tongue protrudes in midline. Palate elevates symmetrically. Shoulder shrugging is normal..? Motor Examination:?Normal muscle tone, bulk and strength,?No atrophy or fasciculations,?No drift of the extended upper extremities,?Deep tendon reflexes are 2+?,?Plantars are flexor?.? Motor Strength:?Proximal Muscles (out of 5):5Distal Muscles (out of 5):5Neck Flexors (out of 5):5Neck Extensors (out of 5):5Deltoid (out of 5):5Biceps (out of 5):5Triceps (out of 5):5Serratus Anterior (out of 5):5Wrist Extensors (out of 5):5APB (out of 5):5Finger Spread (out of 5):5Ileopsoas (out of 5):5Quadriceps (out of 5):5Hamstrings (out of 5):5Tibialis Anterior (out of 5):5Peronei (out of 5):5EDB (out of 5):5Gastrocnemius (out of 5):5Straight Leg Raising:?90 degrees.? Sensory Exam:?Normal light touch, temperature, pinprick, vibration and joint- position sensations?,?Rhomberg sign is absent.? Coordination:?no ataxia,?no titubation,?dlnkok-vq-muuu, wmvi-roer-reoh test and rapid alternating movements were normal.? Gait Exam:?Within normal limits.? Cerebellar Signs:?Mtpxsy-ua-jmcw and emzk-qp-xgjd is normal,?no dysdiadochokinesia?.? Extrapyramidal System:?No tremor, rigidity with normal facial expressions,?No bradykinesia, no bradyphrenia. Normal arm swing and posture. No propulsion or retropulsion.? Speech:?Normal,?no dysphasia or dysarthria..? Mini Mental Status Exam Level of Consciousness:?Alert.? Orientation:?Knows correct year, month, date, day and season,?Knows correct city, county and state. Knows correct location and floor.? Registration:?Able to register 3 objects.? Attention:?Serial 7's performed accurately.? Recall:?Able to recall 3 out of 3 objects.? Language:?Normal spontaneous speech, fluency, repetition,naming, comprehension, reading and writing.? Total Score:?30/30.? General Examination GENERAL APPEARANCE:?normal,?in no acute distress.? HEART:?S1, S2 normal,?no murmurs.? LUNGS:?clear anteriorly and posteriorly.? MUSCULOSKELETAL:?normal.? EXTREMITIES:?no edema.? PSYCH:?alert, oriented,?cognitive function intact,?cooperative with exam.? Assessment & Plan Assessment & Plan (1) Migraine: Code(s): G43.909 - Migraine, unspecified, not intractable, without status migrainosus Category: Medical Plan Start prophylaxis with Topiramate. Use Rizatriptan prn Medications: New rizatriptan One tablet at the onset of migraine. May repeat in 2 hours if necessary. Maximum limit of 2 tablets in a 24 hour. 10 mg PO Q2-4H PRN 9 tabs 4RF migraine headache 30 days MDD 20mg topiramate 50 mg PO BID 60 tabs 4RF 30 days Coding Level of Care Code New Pt Level 5 (45948) Diagnoses Migraine G43.909
== END 2025-02-07 10:56 | disposition home or self-care (01) ==
LOC: HO.HSM 09:41
PROVIDERS: PCP Internal Medicine; Referring Provider Internal Medicine; Visit Provider Psychiatry & Neurology Neurology
DX: G43.909 Migraine, unspecified, not intractable, without status migrainosus (principal)
CPT/HCPCS: 99204

== ENCOUNTER → 2025-04-12 10:06 | Outpatient (REF) | payer OTHER, SELFPAY ==
--- OUTSIDE RECORDS SUMMARY | 2025-04-09 16:10 | XMS_ITS | Encounter Summary ---
Author Organization [facility] Address [address] [facility] [address] [place] [address] Phone Care Team Providers Care Nurse Manager Name Role Phone Shannan Drake [facility] Primary Care Provid er Encounter Details Date Type Department Care Team (Latest Contact Info) Description 04/09/2025 4:10 PM EDT Office Visit [facility] [address], [place] [phone] Vance Lepe MD [address] [facility], [address] [place], [place] [phone] [email or web address] Encounter for insertion of intrauterine contraceptive device (Primary Dx); Counseling for control, oral contraceptives Social History Tobacco Use Types Packs/Day Years Used Date Smoking Tobacco: Never Smokeless Tobacco: Never Alcohol Use Standard Drinks/Week Comments Not Currently 0 (1 standard drink = 0.6 oz pur e alcohol) rarely Child or Family Care Answer Date Record ed Do you have problems with on e of the following making it difficult for you to work, study, or receive health care? No 04/05/2024 Education Answer Date Recorded Are you interested in help w ith more adult education (for example, completing high school, GED, job training, learning the German language, technical skills, or developing parenting skills)? No 04/05/2024 Are you concerned about learning? Not on file 04/05/2024 No 04/05/2024 Yes 04/05/2024 Food Answer Date Recorded Within the past 6 months we worried whether our food would run out before we got money to buy more. Never True 04/05/2024 Within the past 6 months the food we bought just didn't last and we didn't have enough money to get more. Never True Residential Stability Answer Date Recor ded What is your housing situation today? I have saurabh siddiqui 04/05/2024 How many times have you moved in the past 12 wed th? One time 04/05/2024 Paying for Meds Answer Date Recorded Do you have trouble paying for medicines? No 04/05/2024 Paying Utility Bills Answer Date Record ed Do you have trouble paying your heating or elect ricity bill? No 04/05/2024 Transportation Answer Date Recorded Has the lack of transportati on kept you from medical appointments or from getting medications? No 04/05/2024 Unemployment Answer Date Recorded Are you currently unemployed or working on a part-time or temporary basis, and looking for work? No 04/05/2024 Digital Access Answer Date Recorded No 04/05/2024 Yes 04/05/2024 Do you have reliable internet access at home? Ye s 04/05/2024 Do you have a device (e.g., phone, tablet, computer) with a working camera? Yes 04/05/2024 Intimate Partner Violence Answer Date R ecorded Denied Basic Needs Not on file 04/04/2025 In the past 12 months have y ou been in a relationship with a person who hurts, threatens, or tries to control you? No 04/04/2025 Worried food would run out Not on file 04/04 In the past 12 months have y ou been in a relationship with a person who hurts, threatens, or tries to control you? 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 who presents for an insertion of an IUD. IUD Type: Paragard Reason for IUD: Contraception Prior to Admission medications Medication Sig Start Date End Date Taking? Authorizing Provider ABILIFY 5 mg tablet Take 5 mg by mouth daily. 01/20/24 Yes Megan Lyn MD clonazePAM (KLONOPIN) 1 MG tablet Take 1 mg by mouth 3 (three) times a day. Takes 1 tab in the AM and 2 tabs in the PM. 09/18/21 Yes Megan Lyn MD cyclobenzaprine (FLEXERIL) 10 MG tablet TAKE 1 TABLET (10 MG TOTAL) BY MOUTH NIGHTLY AT BEDTIME NEEDED (FOR MUSCLE SPASM/TIGHTNESS). 11/08/24 Yes Shannan Drake CNP lamoTRIgine (LAMICTAL) 100 MG IMMEDIATE release tablet Take 100 mg by mouth daily. Yes Megan Lyn MD melatonin [address] 5 mg under the tongue nightly at bedtime as needed. Yes Megan Lyn MD pantoprazole (PROTONIX) 40 MG tablet Take 1 tablet (40 mg total) by mouth daily. 10/31/24 Yes Kerrie Singh MD prazosin (MINIPRESS) 1 MG capsule 08/28/22 Yes Megan Lyn MD rizatriptan (MAXALT) 10 MG tablet Take 10 mg by mouth as needed for migraine. May repeat in 2 hoursif necessary. Maximum limit of 2 tablets in a 24 hour. 02/07/25 Yes Megan Lyn MD topiramate (TOPAMAX) 50 MG tablet Take 50 mg by mouth 2 (two) times a day. 02/07/25 Yes Megan Lyn MD venlafaxine (EFFEXOR-ER,) 225 mg TR24 Take 1 tablet by mouth every morning. 02/11/23 Yes Megan Lyn MD Bacillus coagulans-inulin 1 billion-250 cell-mg Cap Take 250 mg by mouth daily. Patient not taking: Reported on 04/09/2025 Megan Lyn MD biotin 1 mg tablet Take 1,000 mcg by mouth 3 (three) times a day. Megan Lyn MD desog-e.estradioL/e.estradioL (KARIVA) 0.15-0.02 mgx21 /0.01 mg x 5 per tablet Take 1 tablet by mouth daily. 03/28/24 Shannan Drake, IVANNA eoffppyfytdv-vpknuuez-ecwctq (CENTRUM SILVER) Tab Take 1 tablet by mouth daily. ProviderMegan MD Allergies Allergen Reactions Morphine Hives and Swelling Vitals: 04/09/25 1606 BP: 118/76 Weight: (!) 139.7 kg (308 lb) Height: 160 cm (5' 3 ) The risks, benefits and alternatives to the IUD were discussed today. Discussed risk of infection, bleeding, allergic reaction, severe cramping, and perforation with insertion. The general risks of infection, expulsion and , as well as ectopic were discussed. Consent is obtained. test was performed and negative. Procedure: The patient was positioned on the table in a lithotomy position. On bimanual exam, the uterus was anteverted, normal in size, and had no tenderness present. A speculum was inserted into the vagina and the cervix was very difficult to visualize. Multiple different types of speculums were required to visualize the cervix. Once it was visualized, the cervix was prepped with Betadine. The cervix was grasped by a single toothed tenaculum. However, the speculum would not remain open on multiple attempts and it persistently knocked the tenaculum off the anterior but the cervix. After multiple attempts, the procedure was abandoned. I explained that we could place the IUD under sedation. However, she would prefer to avoid this. I explained that the systemic hormones do not have significant impact on Lamictal but can potentially lower its efficacy. It is also possible the Lamictal could lower the efficacy of the contraception but being on an oral contraceptive still provides contraception to some degree. After a lengthy discussion with the patient she opted to resume her old oral contraceptive which I think is reasonable. Vance Lepe MD documented in this encounter Plan of Treatment Upcoming Encounters Date Type Department Care Team (Late st Contact Info) Description 04/27/2025 2:50 PM EDT Office Visit [facility] [address] [place] [address] [place] [address] Vance Lepe MD [address] [facility], [address] [place] [address] 04/12/2026 2:00 PM EDT Office Visit [facility] [address] [place] [address] Shannan Drake CNP [address] [place] [address], [address] [place] [address] [email or web address] documented as of this encounter Procedures Procedure Name Priority Date/Time Associated Diagnosis Comments POCT URINE HCG Routine 04/09/2025 4:47 PM EDT Encounter for insertion of intrauterine contraceptive device documented in this encounter Results * Poct Urine HCG (04/09/2025 4:47 PM EDT) HCG, urine Negative, Internal QCs acceptable Negative [facility] Other 04/09/2025 4:47 PM EDT Vance Lepe MD POINT OF CARE TEST ORDERABLES Final Result [facility] [address] [facility] [place] [address], [facility] documented in this encounter Visit Diagnoses Diagnosis Encounter for insertion of intrauterine contraceptive device- Primary Counseling for control, oral contraceptives General counseling for prescription of oral contraceptives documented in this encounter Additional Health Concerns Assessment Noted Time PHQ-9 Depression Total Score: 12 025 10:39 AM EDT PHQ-2 Depression Total Score: 4 04/04/20 25 10:39 AM EDT documented as of this encounter Care Teams Nurse Manager Relationship Specialty Start Date End Date Shannan Drake CNP [address] [place] [address], [address] [place] [address] [email or web address] PCP - General Family Medicine 03/26/23 documented as of this encounter Additional Source Comments The information contained in this document represents components of the legal health record. It is not the complete legal health record.[facility]
--- OUTSIDE RECORDS SUMMARY | 2025-04-11 14:00 | XMS_ITS | Encounter Summary ---
Author Organization [facility] Address [address] [facility] [address] [place] [address] Phone Care Team Providers Care Automatic Brine Mixer Operator Name Role Phone Shannan Drake CNP Primary Care Provid er Reason for Referral * Consultation (Within 2 weeks) - New Request Specialty Diagnoses / Procedures Referred By Anupama cespedes Referred To Contact Diagnoses Dysplastic nevus of trunk Shannan Drake CNP [address] [facility], [address]nd [place] [address] Phone: tel: fax: [email or web address] Referral ID Status Reason Start Date Expiration Date V isits Requested Visits Authorized [id number] New Request 04/11/2025 04/12/2026 1 1 Scheduling Instructions [facility] [address] [place] [id number] Reason for Visit * Reason Comments Annual Exam Would like to discus s control - stopped taking Kariva; Would like to discuss nexplanon; Failed IUD insertion; Skin Check Mole on back she wou ld like checked out. Encounter Details Date Type Department Care Team (Late st Contact Info) Description 04/11/2025 2:00 PM EDT Office Visit [facility] [address] [place] [address] [place] [address] Shannan Drake, IVANNA [address] [place], [place] [address] [email or web address] Encounter for health maintenance examination in adult (Primary Dx); Encounter for screening for depression; Screening examination for STI; Influenza vaccination declined; Gastroesophageal reflux disease without esophagitis; Hypertriglyceridemia ; Vitamin D deficiency; Morbid obesity with BMI of 50.0-59.9, adult; Impaired fasting glucose; Moderate episode of recurrent major depressive disorder; Dysplastic nevus of trunk Social History Tobacco Use Types Packs/Day Years [...] high school, GED, job training, learning the Latvian language, technical skills, or developing parenting skills)? [...] your housing situation today? I have saurabh sing 04/05/2024 How many times have you moved in the past 12 mon ths? One time 04/05/2024 Paying for Meds Answer [...] Sign Reading Time Taken Comments Blood Pressure 128/84 04/11/2025 2:01 PM EDT Pulse 100 04/11/2025 2:01 PM EDT Temperature - - Respiratory Rate - - Oxygen Saturation 99% 04/11/2025 2:01 PM EDT Inhaled Oxygen Concentration - - Weight 139.3 kg (307 lb) 04/11/2025 2:01 PM EDT Height 162.6 cm (5' 4 ) 04/11/2025 2:01 PM EDT Body Mass Index 52.7 04/11/2025 2:01 PM EDT documented in this encounter Patient Instructions * Patient Instructions* Shannan Drake, IVANNA - 04/11/2025 2:00 PM EDT Images from the original note were not included. Well Visit, Ages 18 to 65: Care Instructions Well visits can help you stay healthy. Your doctor has checked your overall health and may have suggested ways to take good care of yourself. Your doctor also may have recommended tests. You can helpprevent illness with healthy eating, good sleep, vaccinations, regular exercise, and other steps. Get the tests that you and your doctor decide on. Depending on your age and risks, examples might include screening for diabetes; hepatitis C; HIV; and cervical, breast, lung, and colon cancer. Screening helps find diseases before any symptoms appear. Eat healthy foods. Choose fruits, vegetables, whole grains, lean protein, and low-fat dairy foods. Limit saturated fat and reduce salt. Limit alcohol. Men should have no more than 2 drinks a day. Women should have no more than 1. For some people, no alcohol is the best choice. Exercise. Get at least 30 minutes of exercise on most days of the week. Walking can be a good choice. Reach and stay at your healthy weight. This will lower your risk for many health problems. Take care of your mental health. Try to stay connected with friends, family, and community, and find ways to manage stress. If you're feeling depressed or hopeless, talk to someone. A counselor can help. If you don't have acounselor, talk to your doctor. Talk to your doctor if you think you may have a problem with alcohol or drug use. This includes prescription medicines, marijuana, and other drugs. Avoid tobacco and nicotine: Don't smoke, vape, or chew. If you need help quitting, talk to your doctor. Practice safer sex. Getting tested, using condoms or dental dams, and limiting sex partners can help prevent STIs. Use control if it's important to you to prevent . Talk with your doctor about your choices and what might be best for you. Prevent problems where you can. Protect your skin from too much sun, wash your hands, brush your teeth twice a day, and wear a seat belt in the car. Where can you learn more? Please login or enroll in [facility]: [email or web address] Select the Menu icon from the Header & then scroll down to the Resources section & select Search [employer] Library. Enter P072 in the search box to learn more about 'Well Visit, Ages 18 to 65: Care Instructions.' Current as of: January 23, 2025 Content Version: 14.6 ?? [employer]Jane. Care instructions adapted under license by your healthcare professional. If you have questions about a medical condition or this instruction, always ask your healthcare professional. [employer] disclaims any warranty or liability for your use of this information. documented in this encounter Plan of Treatment Upcoming Encounters Date Type Department Care Team (Late st Contact Info) Description 04/27/2025 2:50 PM EDT Office Visit [facility] [address] [place] [address] [place] [address] Vance Lepe MD [address] [facility], [address] [place] [address] [email or web address] 04/12/2026 2:00 PM EDT Office Visit [facility] [place] [facility] [address] [place] [address] [place] [address] Shannan Drake CNP [address] [facility], [address] [place] [address] [email or web address] Scheduled Orders Name Type Priority Associated Diagnoses Orde r Schedule H. pylori stool PCR with resistance prediction Lab Routine Gastroesophageal reflux disease without esophagitis Expected: 04/11/2025, Expires: 04/11/2026 LAMOTRIGINE LEVEL Lab Routine Moderate episode of recurrent major depressive disorder Expected: 04/11/2025, Expires: 04/11/2026 Comprehensive metabolic panel Lab Routine Hypertriglyceridemia Vitamin D deficiency Impaired fasting glucose Expected: 04/11/2025, Expires: 04/11/2026 CBC Lab Routine Moderate episode of recurrent major depressive disorder Expected: 04/11/2025, Expires: 04/11/2026 Syphilis antibody screen Lab Routine Screening examination for STI Expected: 04/11/2025, Expires: 04/11/2026 Hemoglobin A1c Lab Routine Impaired fasting glucose Expected: 04/11/2025, Expires: 04/11/2026 TSH with reflex Lab Routine Morbid obesity with BMI of 50.0-59.9, adult Expected: 04/11/2025, Expires: 04/11/2026 Hepatitis C antibody, qualitative Microbiology Routine Screening examination for STI Expected: 04/11/2025, Expires: 04/11/2026 HIV-1/2 antigen/antibody Microbiology Routine Screening examination for STI Expected: 04/11/2025, Expires: 04/11/2026 Chlamydia Trachomatis and Neisseria Gonorrhoeae Nucleic Acid Detection Microbiology Routine Screening examination for STI Expected: 04/11/2025, Expires: 04/11/2026 Lipid panel Lab Routine Hypertriglyceridemia Expected: 04/11/2025, Expires: 04/11/2026 25-OH vitamin D Lab Routine Vitamin D deficiency Expected: 04/11/2025, Expires: 04/11/2026 Scheduled Referrals Name Type Priority Associated Diagnoses Order Schedule Ambulatory referral to External Dermatology Outpatient Referral Routine Dysplastic nevus of trunk Ordered: 04/11/2025 documented as of this encounter Visit Diagnoses Diagnosis Encounter for health maintenance examination in adult- Primary Encounter for screening for depression Screening examination for STI Influenza vaccination declined Gastroesophageal reflux disease without esophagitis Esophageal reflux Hypertriglyceridemia Pure hyperglyceridemia Vitamin D deficiency Morbid obesity with BMI of 50.0-59.9, adult Impaired fasting glucose Moderate episode of recurrent major depressive disorder Dysplastic nevus of trunk Benign neoplasm of skin of trunk, except scrotum documented in this encounter Additional Health Concerns Assessment Noted Time PHQ-9 Depression Total Score: 13 025 1:59 PM EDT PHQ-2 Depression Total Score: 4 04/11/20 25 1:59 PM EDT documented as of this encounter Care Teams Automatic Brine Mixer Operator Relationship Specialty Start Date End Date Shannan Drake CNP [address] [place] [address], [address] [place] [address] [email or web address] PCP - General Family Medicine 03/26/23 documented as of this encounter Additional Source Comments The information contained in this document represents components of the legal health record. It is not the complete legal health record.[facility]
--- OUTSIDE RECORDS SUMMARY | 2025-04-12 11:57 | XMS_ITS | Clinical Summary ---
Author Organization [facility] Address [address] [place] [address] Care Team Providers Care Auto Brake Technician Name Role Phone Alonso Mahajan Primary Care Provider [phone] Allergies Active Allergy Reactions Criticality Noted Date [...] 01/09/2021 4:48 PM EDT Plan of Treatment Health Maintenance Due Date Last Done Comments HIV Screening 1991 Varicella Vaccines (1 of 2 - 13+ 2-dose series) 01/14/2004 DTaP,Tdap,and Td Vaccines (7 - Td or Tdap) 09/19/2022 09/19/2012, 01/16/2003, 12/22/1995, Additional history exists Alcohol/Substance Use Screening 07/26/2024 COVID-19 Vaccine ( season) 2025 11/28/2020, 11/07/2020 Influenza Vaccine (#1) 2025 , 05/25/2019, 09/12/2018, Additional history exists RSV Vaccine (60+ years old and patients) (1 - 1-dose 75+ series) 2066 Hepatitis B Vaccines Completed 12/22/1995, 11/24/1995, 05/15/1995, Additional history exists Pneumococcal Vaccine: Pediatric (0-5 Years) and At-Risk Patients (6-50 Years) Aged Out No longer eligible based on patient's age to complete this topic [place] [address] [place] [address] Care Teams Auto Brake Technician Relationship Specialty Start Date End Date Alonso Mahajan [facility] [address] [place] [address] PCP - General Internal Medicine 01/06/21
--- OUTSIDE RECORDS SUMMARY | 2025-04-12 11:57 | XMS_ITS | Encounter Summary ---
Author Organization [facility] Address [address] [place] [phone] Phone Care Team Providers Care Taxi Driver Name Role Phone Alonso Mahajan MD Unavailable [phone] Jenna Pepper BARK PRESS OPERATOR Primary Care Provider Shannan Drake BARK PRESS OPERATOR Primary Care Provid er Encounter Details Date Type Department Care Team (Late st Contact Info) Description 06/23/2021 Ancillary Orders [facility] Orthopedics & Sports Medicine [address] [place] [phone] Noé Cruz PA-C [address] [place] [address] Orthopedics & Sports Medicine, [facility] [place] [address] [email or web address] Social History Tobacco Use Types Packs/Day Years Used Date Smoking Tobacco: Never Smokeless Tobacco: Never Alcohol Use Standard Drinks/Week Comments Yes 0 (1 standard drink = 0.6 oz pur e alcohol) 1-2 x month Child or Family Care Answer Date Record ed Do you have problems with on e of the following making it difficult for you to work, study, or receive health care? No 06/08/2021 Education Answer Date Recorded Are you interested in help w ith more adult education (for example, completing high school, GED, job training, learning the Kiswahili language, technical skills, or developing parenting skills)? No 06/08/2021 Food Answer Date Recorded Within the past 6 months we worried whether our food would run out before we got money to buy more. Sometimes True 021 Within the past 6 months the food we bought just didn't last and we didn't have enough money to get more. Sometimes True 05/26 Residential Stability Answer Date Recor ded What is your housing situation today? I have saurabh siddiqui 06/08/2021 How many times have you moved in the past 12 wed th? One time 06/08/2021 Paying for Meds Answer Date Recorded Do you have trouble paying for medicines? Yes 06/08/2021 Paying Utility Bills Answer Date Record ed Do you have trouble paying your heating or elect ricity bill? No 06/08/2021 Transportation Answer Date Recorded Has the lack of transportati on kept you from medical appointments or from getting medications? No 06/08/2021 Unemployment Answer Date Recorded Are you currently unemployed or working on a part-time or temporary basis, and looking for work? 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, [address] [place] [address] [email or web address] 04/12/2026 2:00 PM EDT Office Visit [facility] [address] [place] [address] [place] [address] Shannan Drake, IVANNA [address] [place] [address], [address] MIRI Nicole [address] [email or web address] documented as of this encounter Visit Diagnoses Not on filedocumented in this encounter Additional Health Concerns Infection Onset Date Last Indicated Resolved Time CoV-Risk 08/07/2021 08/07/2021 08/17/2021 1:24 AM EST CoV-Risk 10/29/2021 10/29/2021 11/09/2021 1:22 AM EDT CoV-Risk 09/08/2022 09/08/2022 09/19/2022 1:22 AM EST CoV-Risk 09/16/2024 09/16/2024 09/27/2024 1:21 AM EST Assessment Noted Time PHQ-9 Depression Total Score: 17 021 9:20 AM EST PHQ-2 Depression Total Score: 4 06/08/20 9:20 AM EST documented as of this encounter Care Teams Taxi Driver Relationship Specialty Start Date End Date Jenna Pepper CNP [address] [place] [address] PCP - General Internal Medicine 06/23/21 03/25/23 Shannan Drake CNP [address] [place] [address], [address] [place] [address] PCP - General Family Medicine 03/26/23 Alonso Mahajan MD [address] [place] [address] Insurance Assigned Provider 08/03/20 10/03/22 documented as of this encounter Additional Source Comments The information contained in this document represents components of the legal health record. It is not the complete legal health record.[email or web address]
--- OUTSIDE RECORDS SUMMARY | 2025-04-12 11:57 | XMS_ITS | Clinical Summary ---
Author Organization [facility] Address [address] [place] [id number] Phone Care Team Providers Care Dental Assisting Instructor Name Role Phone Shannan Drake Cindy [facility] Primary Care Provid er Allergies Active Allergy Reactions Criticality Noted Date Comments Morphine Hives,Swelling High 09/12/2018 Medications clonazePAM (KLONOPIN) 1 MG tablet Take 1 mg by mouth 2 (two) times a day (once in the morning and once in the afternoon) . Takes 1 tab in the AM and 1 tabs in the PM. 09/18/19 22 Active prazosin (MINIPRESS) 1 MG capsule 08/28/19 23 Active venlafaxine (EFFEXOR-ER,) 225 mg TR24 Take 1 tablet by mouth every morning. 02/12/20 23 Active ABILIFY 5 mg tablet Take 5 mg by mouth daily. 01/20/20 24 Active melatonin [address] 5 mg under the tongue nightly at bedtime as needed. Active cyclobenzaprine (FLEXERIL) 10 MG tabletIndications :Muscle spasms of neck TAKE 1 TABLET (10 MG TOTAL) BY MOUTH NIGHTLY AT BEDTIME NEEDED (FOR MUSCLE SPASM/TIGH TNESS). 30 tablet 1 11/09/19 25 Active rizatriptan (MAXALT) 10 MG tablet Take 10 mg by mouth as needed for migraine. May repeat in 2 hours if necessary. Maximum limit of 2 tablets in a 24 hour. 02/08/20 25 Active topiramate (TOPAMAX) 50 MG tablet Take 50 mg by mouth 2 (two) times a day. 02/08/20 25 Active lamoTRIgine (LAMICTAL) 100 MG IMMEDIATE release tablet Take 100 mg by mouth daily. Active multivitamin-mine rals-lutein (CENTRUM SILVER) Tab Take 1 tablet by mouth daily. Active biotin 1 mg tablet Take 1,000 mcg by mouth 3 (three) times a day. Active valACYclovir (VALTREX) 500 MG tablet Take 1 tablet by mouth daily. Active esomeprazole (NEXIUM) 40 MG capsuleIndication s:Gastroesophagea l reflux disease without esophagitis Take 1 capsule (40 mg total) by mouth daily. 90 capsule 3 04/11/20 25 Active desog-e.estradioL /e.estradioL (KARIVA) 0.15-0.02 mgx21 /0.01 mg x 5 per tabletIndications :Surveillance for control, oral contraceptives Take 1 tablet by mouth daily. 84 tablet 3 03/28/20 24 025 Discontinued Bacillus coagulans-inulin 1 billion-250 cell-mg Cap Take 250 mg by mouth daily. 025 Discontinued(No longer taking) pantoprazole (PROTONIX) 40 MG tabletIndications :Gastroesophageal reflux disease without esophagitis Take 1 tablet (40 mg total) by mouth daily. 90 tablet 3 11/01/19 25 025 Discontinued(In effective) Hospital, Clinic, or Other Facility Administered Medication Ordered Dose Route Frequency Start Date End Date Status copper (PARAGARD) intrauterine device 1 eachIndications:Encounte r for insertion of intrauterine contraceptive device 1 each Utrn Every 10 years 04/09/2025 Active Active Problems Problem Noted Date Diagnosed Date Dysplastic nevus of trunk 04/11/2025 Impaired fasting glucose 04/11/2025 Allergic rhinitis 02/14/2025 Pain in left arm 05/17/2024 Assessment & Plan (05/17/2024 12:56 PM EDT): The pain extends from the neck to the shoulder and into the left arm, causing tenderness and muscle tightness. An EKG will be performed today to rule out any cardiac issues due to the pain radiating to the left arm and jaw. Heat therapy, such as a heating pad or topical warming agents like Icy Hot or [place], was recommended to provide relief. The patient was advised to continue using muscle relaxers at bedtime to help alleviate the pain and improve sleep. Cervical radiculopathy 05/17/2024 Assessment & Plan (05/17/2024 12:57 PM EDT): The pain in the arm is likely due to nerve involvement rather than a physical injury. Gabapentin will be prescribed, starting with one dose at bedtime for three days, then increasing to twice daily if tolerated. The potential side effect of drowsiness was discussed. Copw-[id number] pain medications such as Tylenol, ibuprofen, Motrin, or naproxen can be used as needed. Skin irritation 05/17/2024 Assessment & Plan (05/17/2024 1:07 PM EDT): Small boil vs folliculitis on stretch darline of right hip, likely due to damaged skin in that area and also friction/high contact location. Mild irritation noted, not warm or indurated, no fluctuance or palpable cyst. Recommended warm compresses as needed and continued observation, pt in agreement. Not able to tolerate normal bandage adhesive. A hydrocolloid bandage was recommended to reduce friction and promote healing. Perioral dermatitis 04/06/2024 Assessment & Plan (08/08/2024 10:01 AM EST): The condition appears to be improving but has not completely resolved. It does not resemble acne but rather presents as small blisters. The use of benzoyl peroxide may have exacerbated the dryness and irritation of the skin. She is advised to use a mild cleanser or simply wash her face with clean hands and water. The application of a thin film of retinoid over the entire face or acne-prone areas is recommended once daily in the evening. She is cautioned that both doxycycline and retinoids can increase sun sensitivity, necessitating the use of sunscreen, hats, or shade when outdoors. A prescription for doxycycline 100 mg, to be taken once daily for 4 weeks, has been provided, with a refill available if necessary. She is instructed to take the medication with or without food but avoid dairy products. Assessment & Plan (04/06/2024 8:06 AM EDT): She has a spreading rash on her face around her mouth, characterized by minimally-itchy blisters that then dry out and flake. Not crusty at all or suggestive of impetigo and no pustules to suggest acne. Dermatitis evident, likely allergic-type or eczema, possibly stress-induced. She is advised to apply OTC hydrocortisone 1% cream to the affected area. If there is no improvement after two weeks of daily application, she should inform the office for a stronger treatment option. Frequent nosebleeds 04/06/2024 Assessment & Plan (04/06/2024 8:07 AM EDT): She reports frequent nosebleeds, occurring almost 4-5 times a week, likely due to a fragile blood vessel from a past tumor removal. No open areas or active bleeding noted on exam, although nasal mucosa does appear fragile and inflamed. Recommended treatments include applying Vaseline to the right nostril before bedtime, using a humidifier, and saline nasal spray to prevent dryness. Afrin was suggested for stubborn nosebleeds. If symptoms persist, a return to ENT may be considered. ED precautions discussed, if prolonged or profuse bleeding occurs cauterization may be needed. Preoperative examination 02/29/2024 Muscle spasms of neck 05/12/2023 Assessment & Plan (05/17/2024 12:54 PM EDT): Muscle spasm appreciated on exam. Continue gentle stretching and heat, consider trying topical warming treatments. A prescription for Flexeril 10 mg to be taken at bedtime as needed will be provided. Assessment & Plan (05/12/2023 7:38 PM EDT): Muscle spasm appreciated on exam. Continue stretching, heat, consider foam rolling/rolling a ball between low back and the floor or wall. Discussed options including sparing use of PRN muscle relaxer, risks/benefits/side effects reviewed - elects to start. F/u PRN. Uses oral contraception 05/12/2023 Assessment & Plan (04/06/2024 8:22 AM EDT): Continues on Kariva BCP, content with this method of contraception. No personal hx DVT/PE. Never smoker. Personal history of migraines but no associated aura. Assessment & Plan (11/10/2023 2:51 PM EDT): Continues on Kariva BCP, content with this method of contraception. No personal hx DVT/PE. Never smoker. Assessment & Plan (05/12/2023 7:30 PM EDT): Requested resuming oral control. Hx of migraines but w/o aura. Never smoker. No fhx breast cancer. BCP is a reasonable option for contraception, recommended back up control for at least the first week and if any missed pills. Discussed Wednesday vs same-day start, risks/benefits/side effects reviewed. Recommend barrier methods for STI prevention. Chronic bilateral low back pain without sciatica 05/12/2023 Assessment & Plan (04/06/2024 8:22 AM EDT): Chronic and recurrent low back pain. Hx of spondylosis and spondylolisthesis of lower back, worst at L5-S1. Has worked with sports medicine ([facility]) and physical therapy previously. Continue supportive measures including relative rest, gentle stretching, OTC pain relief. Likely to improve with weight loss. Assessment & Plan (05/12/2023 7:35 PM EDT): Chronic and recurrent low back pain. Hx of spondylosis and spondylolisthesis of lower back, worst at L5-S1. No records available, has worked with sports medicine ([facility]) in the past. Has worked with PT in the past, declines new referral. Discussed potential benefit of rn care transition, she will consider. Continue supportive measures including relative rest, gentle stretching, OTC pain relief. Radiating back pain 03/26/2023 03/26/2023 Snoring 03/26/2023 03/26/2023 Assessment & Plan (04/06/2024 8:24 AM EDT): Hx of snoring w/ recent waking and persistent migraine headaches. No witnessed episodes of apnea. She was referred to sleep medicine earlier this year but ultimately did not follow-through. Assessment & Plan (05/12/2023 7:27 PM EDT): Hx of snoring w/ recent waking and persistent migraine headaches. No witnessed episodes of apnea. Sleep medicine consult pending r/o MYLES. Assessment & Plan (03/26/2023 5:27 PM EDT): Hx of snoring w/ recent waking and persistent migraine headaches. No witnessed episodes of apnea. Sleep medicine consult ordered r/o MYLES. Hearing loss 03/26/2023 Assessment & Plan (03/26/2023 4:59 PM EDT): Subjective non-specific hearing loss w/ history of many ear infections throughout childhood (had tubes placed x3). Also strong family history of early hearing loss (mother and mat gfather). Interested in hearing eval, will send for audiology consult. Hypertriglyceridemia 03/26/2023 Assessment & Plan (04/06/2024 8:25 AM EDT): Likely familial. Triglycerides historically in the 200-300 range. Will continue routine monitoring. Updated lipid panel already ordered, encouraged to complete fasting labs. Continue efforts re: diet and exercise. Limit simple carbs and concentrated sweets. Avoid trans and saturated fats. Assessment & Plan (03/26/2023 4:55 PM EDT): Likely familial. Triglycerides historically in the 200-300 range. Will continue routine monitoring. Continue efforts re: diet and exercise. Limit simple carbs and concentrated sweets. Avoid trans and saturated fats. 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 Diagnosed in childhood; w/u with pediatric neurology at [facility]. Denies any recurrence, not currently on any antiepileptic medication. Reports taking Depakote for many years as a child, recently independently tapered off of Topamax which she was prescribed for migraine prophylaxis. Cystic acne vulgaris 03/09/2023 03/26/2023 Assessment & Plan (08/08/2024 10:04 AM EST): Chronic facial acne, likely hormonal as significantly worse when estrogen- containing control was previously discontinued. Plan for tx w/ doxycycline re: perioral dermatitis which likely will also benefit acne. She will monitor and continue her current skin care regimen. Assessment & Plan (03/26/2023 4:37 PM EDT): Acne significantly worse following change from EVANGELINA to POP. Now off all control; strong suspicion hormonal acne. Current w/u r/o PCOS. Continues with topical Differin OTC, discussed importance of sunscreen use. Consider trial of spironolactone if PCOS is confirmed. Plan for f/u in 1 month, sooner PRN. Posttraumatic stress disorder 12/14/2022 Assessment & Plan (04/06/2024 8:20 AM EDT): PTSD managed with prazosin at bedtime. Has also noted less severe sx since re-starting Abilify. Continue counseling and good self-care: healthy eating, adequate sleep, avoiding negative psychoactive substances [like alcohol, caffeine] and regular exercise. Vitamin D deficiency 01/03/2019 Assessment & Plan (03/26/2023 4:41 PM EDT): Vitamin d3 level previously as low as 10. Had been corrected with supplement, not currently taking. Will re-check. Assessment & Plan (06/09/2020 10:01 PM EST): Check level. Assessment & Plan (01/03/2019 7:48 AM EDT): Continue vitamin D 5,000 IU daily for the next 1-2 months then retest. Gastroesophageal reflux disease 12/19/2018 Assessment & Plan (11/01/2024 8:36 AM EDT): She is no longer responding to omeprazole as well as she previously was. We discussed avoiding larger meals in the evening and eating close to bedtime. Will also trial pantoprazole. Orders: pantoprazole (PROTONIX) 40 MG tablet; Take 1 tablet (40 mg total) by mouth daily. Assessment & Plan (04/06/2024 8:23 AM EDT): Stable, well managed with daily omeprazole and rare use of tums. EGD (2020) neg for esophagitis. Does not feel able to come off of PPI at present. Sx may also improve with weight reduction. Recommend raising HOB/non-supine sleep position. Assessment & Plan (03/26/2023 5:36 PM EDT): Stable, well managed with daily omeprazole and rare use of tums. EGD (2020) neg for esophagitis. Does not feel able to come off of PPI at present. Sx may also improve with weight reduction. Recommend raising HOB/non-supine sleep position, sleep medicine consult pending. Assessment & Plan (06/09/2020 10:01 PM EST): Well-managed on omeprazole. Assessment & Plan (01/03/2019 7:53 AM EDT): Continue omeprazole. Assessment & Plan (12/19/2018 6:10 PM EDT): Stable, continue omeprazole. Major depressive disorder 09/12/2018 Assessment & Plan (04/06/2024 8:19 AM EDT): Recurrent depression per history, current sx moderate-severe per screening. Continues on venlafaxine, fluvoxamine, Abilify, and prazosin. Co-morbid anxiety and PTSD. Multiple medication trials in the past including risperidone and Wellbutrin. Followed by psychiatry; has a psych prescriber. She is meeting with them tomorrow and will discuss amitriptyline as a possible addition to her regimen, likely will need to reduce or stop one of her other antidepressants. No safety concerns at present, well supported by family. Assessment & Plan (03/26/2023 5:06 PM EDT): Recurrent depression per history, current sx severe per screening. Continues on venlafaxine 225mg daily. Also on risperidone and prazosin at bedtime. Co-morbid anxiety. Multiple medication trials in the past including Abilify and Wellbutrin. Followed by psychiatry; has a psych prescriber. Not much improvement in migraines with higher dose of venlafaxine, worst migraines might be less severe. No safety concerns at present, well supported by family. Assessment & Plan (06/09/2020 10:02 PM EST): Continue Abilify. To establish with [facility]. Assessment & Plan (01/03/2019 8:50 AM EDT): Reviewed for medication consult with Dr. Ervin given difficulty establishing with outpatient psychiatrist. She will continue sertraline in the interim. Continue continuous COCP dosing as it is helping minimize mood instability. Assessment & Plan (12/19/2018 6:02 PM EDT): Recommended f/u with psychiatry due to poorly managed depression and anxiety. Discussed options within her insurance network, reviewed on insurance website today. She will call to establish care and let us know if any issues with provider availability. Supportive counseling re: establishing with talk therapist. Reviewed local in-network options per insurance website. Mitochondrial disease 09/12/2018 Seasonal allergies 09/12/2018 Assessment & Plan (05/17/2024 1:08 PM EDT): Seasonal environmental allergies managed with Zyrtec OTC as needed, which seems to be less effective recently. Xyzal was suggested as an alternative to Zyrtec for allergy management, which may help reduce the frequency of migraines. Astepro nasal spray was also recommended as a potential treatment option. Assessment & Plan (04/06/2024 8:23 AM EDT): Seasonal environmental allergies managed with Suzette OTC as needed. Assessment & Plan (01/03/2019 8:50 AM EDT): Continue current regimen. Assessment & Plan (12/19/2018 5:57 PM EDT): Continue Flonase as directed. Morbid obesity with BMI of 50.0-59.9, adult 08/26 Assessment & Plan (05/17/2024 1:11 PM EDT): Weight has been generally stable, BMI 54.58. She has been attempting appropriate behavioral modification, dietary restrictions and physical exercise for >3 months. Recently consulted with bariatric surgeon re: possible sleeve gastrectomy but she has decided not to move forward right now. She was prescribed Zepbound at our last visit which was rejected outright as it is not included on her insurance formulary. This was changed to Wegovy but it seems this was not covered by her insurance and is cost-prohibitive otherwise >$1000 monthly. We will follow-up as I do not have confirmation of prior authorization final decision. Assessment & Plan (04/06/2024 8:16 AM EDT): Weight has been generally stable, BMI 54.58. She has been attempting appropriate behavioral modification, dietary restrictions and physical exercise for >3 months. Recently consulted with bariatric surgeon re: possible sleeve gastrectomy but she has decided not to move forward right now. She is interested in medication for weight loss. She is not a good candidate for phentermine or Wellbutrin given her current antidepressant regimen and also her history of anxiety and PTSD. Has not tolerated Topamax previously. Most likely to benefit from GLP1 receptor agonist, discussed options including Wegovy, Zepbound and Saxenda, risks/benefits/side effects reviewed. Meds are likely to require insurance prior approval. She was also made aware of recent challenges finding medications in stock. Rx submitted for starting dose of Zepbound. Assessment & Plan (02/29/2024 3:38 PM EDT): This is a 34 YO patient who is interested in weight loss surgery, specifically the laparoscopic sleeve gastrectomy for weight loss. We have discussed gastric bypass and sleeve gastrectomy surgery in detail including risks, benefits, and alternatives. We have also discussed requirements preop and post op. They understands that they are required to lose about 10 percent of their current weight which is 30 lbs. The goal weight at the time of submission to the insurance company will be 270.8 pounds. In an effort to help the patient to lose weight I have prescribed an eating plan which will consist of a protein shake or a protein bar or Romanian yogurt or cottage cheese to be consumed at 9 AM and 3 PM daily. The patient will consume 4 ounces of protein with 6 ounces of vegetable or small salad with a noncreamy salad dressing of not more than 2 tablespoons at 12 PM and 6 PM daily. At the 6 PM meal the patient may have 1/2 cup of carbohydrate. We have ordered required labs and testing. The patient will attend 5 nutrition classes, 2 appointments, and dietitian consultation. The patient will need to obtain a medical clearance letter from the primary care doctor prior to submission to the insurance company. The patient will see the dietitian in 2 and 4 weeks and I will follow up with them again in 6 weeks to ensure compliance with the meal plan. The patient will continue current medications as reviewed. They are not stable and are considered morbidly obese. I spent 55 minutes with this patient which also included documentation. Assessment & Plan (03/26/2023 4:58 PM EDT): BMI 52.29, weight appears stable, denies any recent significant gain or loss. No hx of insulin resistance/metabolic syndrome but strong clinical suspicion for PCOS. Will send for hormonal lab w/u, also r/o underactive thyroid. Pt and family in agreement. Physical activity currently limited by neck and back pain as well as persistent and intrusive migraines. Weight may come off once these addressed. Pending sleep medicine eval r/o MYLES. Plan for f/u in 1 month. Could consider medication options and/or bariatric referral, not discussed today. Assessment & Plan (01/03/2019 8:49 AM EDT): Please increase regular activity. This should benefit her elevated triglycerides as well. Generalized anxiety disorder 09/12/2018 Assessment & Plan (04/06/2024 8:21 AM EDT): General and situational anxiety w/ PTSD and depression. Has access to clonazepam 1mg TID PRN. MassPat reviewed and reflects responsible use. Managed by psychiatry. Keratosis pilaris 09/12/2018 Assessment & Plan (01/03/2019 8:50 AM EDT): Continue Differin. Assessment & Plan (12/19/2018 5:57 PM EDT): Continue Differin regularly, as directed. Migraine without aura 09/12/2018 Assessment & Plan (05/17/2024 12:59 PM EDT): Continues with migraines, previously as often as daily, recently only 1-2x/week but lasting a full day or more with each episode. Previous treatments with Topamax, venlafaxine, and propranolol were ineffective or caused side effects. Naratriptan is used for abortive tx for severe migraines but is limited in quantity. Recently tried Nurtec preventatively which did work briefly but her insurance would not cover for her to take EOD. A referral to a neurologist will be made, she was referred to Dr Deal previously but missed that appointment and their office has declined rescheduling. Alternative referral sent to [facility] neuro. Assessment & Plan (04/06/2024 8:10 AM EDT): She experiences migraines at least three times a week, with daily headaches requiring frequent use of ibuprofen and Tylenol. Previous treatments with Topamax, venlafaxine, and propranolol were ineffective or caused side effects. Naratriptan is used for abortive tx for severe migraines but is limited in quantity. Prophylaxis options discussed include trying verapamil or amitriptyline, but due to the risk of serotonin syndrome with her current antidepressants and her normal BP, these are not immediately viable. Nurtec was suggested as a preventive treatment, pending insurance approval. If Nurtec is not covered, alternative treatments the ones discussed today and/or proceeding with a neurology consult will be considered. She will follow up in a few weeks after starting Nurtec to assess its effectiveness. Assessment & Plan (05/12/2023 7:26 PM EDT): Improved complex migraine w/o aura - associated dizziness, nausea (w/o vomiting) and light/sound/smell sensitivity. Also complicated by tension component - triggered by neck pain and teeth grinding. Normal imaging with CT in 2008. Reports daily or nearly daily migraines, sometimes waking from sleep. Confirms she has an upcoming apt for routine eye exam. New referral pending for sleep medicine r/o MYLES. Discussed concept of preventative vs reactive medication. Previously managed on Topamax, recently tapered off - ineffective. Continues on high dose venlafaxine without much improvement (rx re: depression), maybe fewer very severe migraines. Now on propranolol 20mg TID, had a single episode of dizziness and maybe contributing to some fatigue. Reports some recent headaches, denies migraines which she describes as more severe. Discussed options including changing to XR formulation. Elects to continue current regimen pending her neurology appointment later this month w/ Dr Deal. Has failed sumatriptan due to SE (flushing/feeling hot). Not sure if she has picked up her more recent rx for naratriptan. May continue OTC pain relief PRN, aware for risk of rebound, goal would be to limit this to <3x/week. - Recommended headache journal to better identify any modifiable triggers. F/u as currently scheduled w/ neuro and w/ primary care PRN. Assessment & Plan (03/26/2023 5:16 PM EDT): Uncontrolled complex migraine w/o aura - associated dizziness, nausea (w/o vomiting) and light/sound/smell sensitivity. Also complicated by tension component - triggered by neck pain and teeth grinding. Normal imaging with CT in 2008. Reports daily or nearly daily migraines, sometimes waking from sleep. Confirms she has an upcoming apt for routine eye exam. New referral generated for sleep medicine r/o MYLES. Discussed concept of preventative vs reactive medication. Previously managed on Topamax, recently tapered off - ineffective. Continues on high dose venlafaxine without much improvement (rx re: depression), maybe fewer very severe migraines. Discussed other options including BB - doesn't believe she has ever tried propranolol. Risks/benefits/side effects reviewed. Does have some chronic fatigue so this may exacerbate but she feels any benefit with regards to her migraines may outweigh. Has failed sumatriptan due to SE (flushing/feeling hot). Previously prescribed rizatriptan, unclear why this was changed. Most recent rx for naratriptan which is somewhat helpful. May continue OTC pain relief PRN, aware for risk of rebound, goal would be to limit this to <3x/week. - START propranolol 20mg, daily x1 week, BID x1 week then TID. Consider change to XR formulation on f/u if positive response. - Recommended headache journal to better identify any modifiable triggers. - New neurology consult generated. Previously followed by [facility] neurology but she requests a 2nd opinion. Plan for f/u in 4 weeks, sooner PRN. Assessment & Plan (06/09/2020 10:02 PM EST): Worsened with current sinus issues. To continue antihistamines. If not improving after allergies resolve she will f/u. Neck pain 06/16/2016 Assessment & Plan (05/17/2024 12:54 PM EDT): The pain started last Wednesday and has been consistent, primarily on the left side of the neck, radiating down the arm, causing tingling and weakness in the fingers. The pain worsens with looking down and certain fast movements. An x-ray of the neck will be ordered to check for any misalignment or vertebral issues. If the pain persists, physical therapy or chiropractic treatment will be considered. Resolved Problems Problem Noted Date Diagnosed Date Resolved Date Acute maxillary sinusitis 06/29/2024 Assessment & Plan (08/08/2024 10:02 AM EST): The doxycycline prescribed for perioral dermatitis should also cover a potential sinus infection. The cough is expected to resolve once the sinuses have drained. She is advised to use a neti pot or saline nasal spray, steam, and warm compresses to facilitate drainage. Acute cough 06/29/2024 04/11/2025 Assessment & Plan (08/08/2024 10:02 AM EST): The cough does not appear to be indicative of pneumonia. It is likely viral in nature, given its sudden onset. Zyrg-wzr-dwlwinr cough suppressants and throat lozenges may provide some relief. If her condition worsens, she develops a fever, or experiences shortness of breath, she is to inform us immediately. Pain of left calf 11/10/2023 05/17/2024 Assessment & Plan (11/10/2023 2:44 PM EDT): Given the patient's current regimen of control, she is at an elevated risk of thromboembolic event. The tenderness in the area suggests a possible deep varicose vein. A venous Doppler will be ordered. The patient is advised to continue with stretching and maintain mobility, and to elevate her legs, particularly towards the end of the day. In the event of significant worsening of symptoms, such as significant swelling, redness, severe pain, chest pain or shortness of breath, the patient is advised to seek immediate medical attention at the emergency room. If there is no improvement and her ultrasound is non-revealing, she will follow up and a referral to a vascular specialist or physical therapy will be considered. Right lumbar radiculopathy 03/26/2023 03/26/2023 0 03/26/2023 Acute otitis externa of left ear 03/26/2023 05/12/2023 Assessment & Plan (03/26/2023 5:18 PM EDT): Left EAC narrowed, red, swollen and tender. No discharge. No evidence of AOM. Will treat with topical antiseptic and steroid ear drops, risks/benefits/side effects reviewed. Pt will f/u if worse or not improved after 7 days. Irregular periods/menstrual cycles 03/26/2023 04/05/2024 Assessment & Plan (03/26/2023 5:03 PM EDT): Menstrual cycles historically irregular, regulated with [facility] for many years. Now off of all control and has not yet had a period. With obesity and hormonal acne strong suspicion PCOS. Will send for prelim hormonal workup, pt in agreement. Hx of migraines withOUT aura so BCP remain an option for her but she prefers to avoid. May be a good candidate for hormonal IUD as an alternative. Plan for f/u in 1 month to review lab results, sooner PRN. Nausea 01/06/2021 03/26/2023 Assessment & Plan (01/06/2021 8:30 PM EDT): At this point there is no evidence that there is an acute process going on here. This could be irritable bowel syndrome. We will treat her symptomatically with some Zofran to cover the nausea. Sugar-free hussain kinjal can be also helpful here. Functional diarrhea 01/06/2021 04/05/20 24 Assessment & Plan (01/06/2021 8:31 PM EDT): It does not appear to be infectious diarrhea from what she is describing so we will treat the diarrhea with some Imodium. She should not exceed more than 4 tablets a day and space out the tablets every 6 hours as needed. Surveillance for contr ol, oral contraceptives 06/09/2020 03/26/2023 Assessment & Plan (06/09/2020 10:03 PM EST): Would like to explore LARCs. Referring to SHADE CUTTER for consult. Routine general medical exam ination at a health care facility 01/03/2019 06/09/2021 Assessment & Plan (01/03/2019 8:50 AM EDT): Discussed general health maintenance including: Continue healthy, balanced diet consisting of whole foods and adequate fiber; minimize processed foods. Drink 6- 8 glasses of water daily. Physical activity for at least 30 minutes most days of the week. Discussed appropriate BMI. Recommend goal of 8 hours continuous sleep per night. Please wear seatbelts regularly. Please see pt education re: health maintenance and need for f/u if any concerns. Encouraged self-breast awareness. Encouraged regular monitoring of skin lesions; consider referral for derm eval with any concerns. Discussed daily sunscreen application and minimizing prolonged UV exposure. Immunizations reviewed. Discussed importance of regular dental and opthalmology f/u. Reviewed after hours coverage and contact information. Repeat TSH in the future. 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 Encouraged dosing with citrus/OJ or vit C tab. Rash 12/19/2018 03/26/2023 Assessment & Plan (12/19/2018 6:05 PM EDT): No apparent HS, but minor acanthosis nigricans at b/l axillae. Suggested cleansing with Hibiclens at area several times a week after showering and washing off totally. Await labs re: discoloration of skin folds. Umbilicus discharge 12/19/2018 03/26/20 Assessment & Plan (06/09/2020 10:01 PM EST): Await culture Assessment & Plan (12/19/2018 6:07 PM EDT): Keep area clean and dry. No active discharge noted today. Fatigue 12/19/2018 04/06/2024 Assessment & Plan (05/12/2023 7:32 PM EDT): Chronic, non-specific fatigue. Normal lab w/u except for low D3, resume supplement. ?Worse with new rx for propranolol, may improve with time. Elects to continue BB at current dosing. Assessment & Plan (12/19/2018 6:09 PM EDT): Await labs. Encounters Date Type Department Care Team Description 04/11/2025 2:00 PM EDT [facility] Visit [facility] [address] [place] [address] [place] [address] Shannan Drake CNP Encounter for health maintenance examination in adult (Primary Dx); Encounter for screening for depression; Screening examination for STI; Influenza vaccination declined; Gastroesophageal reflux disease without esophagitis; Hypertriglyceridemia; Vitamin D deficiency; Morbid obesity with BMI of 50.0-59.9, adult; Impaired fasting glucose; Moderate episode of recurrent major depressive disorder; Dysplastic nevus of trunk 04/09/2025 4:10 PM EDT Office Visit [facility] [address] [place] [address] [place] [address] Vance Lepe MD Encounter for insertion of intrauterine contraceptive device (Primary Dx); Counseling for control, oral contraceptives from Last 3 Months Immunizations Immunization Administration Dates Next Due COVID-19 (Pre-05/17) Pfizer Vaccine, mRNA, PF 11/28/2020,11/07/2020 DTP 12/22/1995, 3,1991,06/15,1991 [id number]-[id number] 05/15/1992, 2,1991,03/15 HPV,quadrivalent 08/02/2007,04/08/2007, 7 Hepatitis B 12/22/1995,05/15/1995,03/15/1995 Hepatitis B, unspecified formulation 11/24/1995, 04/25/1995,02/23/1995 Hib,HbOC 05/15/1992, 2,1991,03/15 INFLUENZA, SPLIT VIRUS, TRIVALENT PF 07/05/2013 IPV 01/28/1997, 6,12/10/1992,08/31,1991 Influenza Quadrivalent MDCK Preservative Free IM 05/15/2022 Influenza Quadrivalent Prese rvative Free IM 04/19/2023,06/09/2021,06/06/2020,05/25,09/12/2018,04/11/2015 Influenza, Unspecified Formulation 05/15/2022 MMR 01/17/2014,12/22/1995,05/15/1992 Meningococcal MCV4P 04/21/2007 Polio - OPV 12/22/1995, 3,1991,03/15 Td (adult),2 Lf Tetanus Toxo id, PF, Adsorbed 04/05/2024,01/16/2003 Tdap 12/06/2024,09/19/2012 Family History Medical History Relation Comments No Known Problems Brother 1 No Known Problems Brother 2 No Known Problems Brother 3 Hypertension Father Heart attack Maternal Grandfather x5 Crohn's disease Maternal Grandmother Glaucoma Maternal Grandmother Macular degeneration Maternal Grandmother Depression Mother RAF disease Mother Hearing loss Mother Suicidality Mother Aneurysm Paternal Grandfather Blindness Paternal Grandfather Hearing loss Paternal Grandfather Prostate cancer Paternal Grandfather Diabetes Paternal Grandmother Kidney failure Paternal Grandmother Asthma Sister Depression Sister Migraines Sister Mixed connective tissue disease Sister Breast cancer Neg Hx Colon cancer Neg Hx Relation Status Comments Brother 1 Alive Brother 2 Alive Brother 3 Alive Father Alive Maternal Grandfather (Age 68) Maternal Grandmother (Age 69) Mother Alive Paternal Grandfather Paternal Grandmother Sister Alive Social History Tobacco Use Types Packs/Day Years Used Date Smoking Tobacco: Never Smokeless Tobacco: Never Tobacco Cessation:Counseling Given: Not Answered Alcohol Use Standard Drinks/Week Comments Not Currently [...] your housing situation today? I have saurabh chen 04/05/2024 How many times have you moved in the past 12 wed ths? One time 04/05/2024 Paying for Meds [...] file Not on file Not on file Last Filed Vital Signs Vital Sign Reading Time Taken Comments Blood Pressure 128/84 04/11/2025 2:01 PM EDT Pulse 100 04/11/2025 2:01 PM EDT Temperature 36.7 C (98 F) 09/16/2024 10:52 AM EST Respiratory Rate 20 09/16/2024 10:52 AM EST Oxygen Saturation 99% 04/11/2025 2:01 PM EDT Inhaled Oxygen Concentration - - Weight 139.3 kg (307 lb) 04/11/2025 2:01 PM EDT Height 162.6 cm (5' 4 ) 04/11/2025 2:01 PM EDT Body Mass Index 52.7 04/11/2025 2:01 PM EDT Plan of Treatment Upcoming Encounters Date Type Department Care Team (Late st Contact Info) Description 04/27/2025 2:50 PM EDT Office Visit [facility] [address] [place] [address] [place] [address] Vance Lepe MD [address] [place] [address], [address] [place] [address] 04/12/2026 2:00 PM EDT Office Visit [facility] [address] [place] [address] [place] [address] Shannan Drake, GRADE RECORDER [address] [facility], [address]nd [place] [address] [email or web address] Health Maintenance Due Date Last Done Comments COVID-19 VACCINE (2024- season) 2025 05/15/2022, 07/09/2021, 11/28/2020, Additional history exists REPEAT PHQ 05/11/2025 04/11/2025, 04/11/2025 INFLUENZA VACCINE (#1) 2026 , 05/15/2022, 05/15/2022, Additional history exists Postponed from 02/23/2025 (Patient Declines / Guardian Declines) DEPRESSION SCREENING 04/11/2026 04/11/2025, 04/11/20 PAP SMEAR 2028 01/12/2023, 12/25, 01/03/2019, Additional history exists Adult Td,Tdap Booster 12/06/2034 12/06/2024 , 04/05/2024, 09/19/2012, Additional history exists HIB VACCINES Completed 05/15/1992, 04/26, 1991, Additional history exists MENINGOCOCCAL VACCINES (ACWY) Completed 04/21/2007 HEPATITIS C SCREENING Completed 04/27/2023 HIV ONE-TIME SCREENING (18-65 YEARS) Completed 04/27/2023, 12/21/2015 SMOKING STATUS SCREENING (Once After 26 Yrs) Completed 04/11/2025 HEPATITIS A VACCINES Aged Out No long er eligible based on patient's age to complete this topic MENINGOCOCCAL VACCINES (B) Aged Out N o longer eligible based on patient's age to complete this topic PNEUMOCOCCAL VACCINES (0-49 years) Aged Out No longer eligible based on patient's age to complete this topic Medical Devices Implanted Type Area [employer] Driver Device Identifier Shelf Expiration Date Model / Serial / Lot Iud Implanted: (Quantity not on file) Intrauterine Device Procedures Procedure Name Priority Date/Time Associated Diagnosis Comments POCT URINE HCG Routine 04/09/2025 4:47 PM EDT Encounter for insertion of intrauterine contraceptive device HEPATITIS C ANTIBODY, QUALITATIVE Routine 04/27/2023 8:43 AM EDT Screen for sexually transmitted diseases At risk for sexually transmitted disease due to unprotected sex HM PAP SMEAR FOR RESULT ENTRY ONLY Routine 01/12/2023 OUTSIDE HIV Routine 12/21/2015 from Last 3 Months or Most Recently Relevant to Health Maintenance Results * Poct Urine HCG (04/09/2025 4:47 PM EDT) HCG, urine Negative, Internal QCs acceptable Negative [facility] Other 04/09/2025 4:47 PM EDT Vance Lepe MD POINT OF CARE TEST ORDERABLES Final Result Performing Organization Address [facility] Co de Phone Number [id number] [place] [address] * Hepatitis C antibody, qualitative (04/27/2023 8:43 AM EDT) HCV NON-REACTIV E NON-REACTI VE Blood 04/27/2023 8:43 AM EDT 04/27/2023 8:52 AM EDT Shannan Drake CNP LAB BLOOD ORDERABLES Final Result Performing Organization Address [facility] Co de Phone Number [address] [address] * HM PAP SMEAR FOR RESULT ENTRY ONLY (01/12/2023) HM Pap smear NILM, HPV neg Historical Provider HEALTH MAINTENANCE Final Result * OUTSIDE HIV TEST (12/21/2015) HIV - External Neg Historical Eboni ANDRE LAB BLOOD ORDERABLES Julee l Result from Last 3 Months or Most Recently Relevant to Health Maintenance Insurance CIGNA PPO CIGNA PPO CIGNA PPO CIGNA PPO CIGNA PPO CIGNA PPO Advance Directives For more information, please contact: [phone] (9AM - 5PM [facility], Wednesday-Wednesday) Documents on File Type Date Recorded Patient Senior Principal Software Engineer Expl anation Healthcare Proxy 05/16/2019 10:50 AM Heal thcare Proxy - signed Care Teams Dental Assisting Instructor Relationship Specialty Start Date End Date Shannan Drake CNP [address] [place] [address], [address] [place] [address] [email or web address] PCP - General Family Medicine 03/26/23 Additional Source Comments The information contained in this document represents components of the legal health record. It is not the complete legal health record.[facility]
--- OUTSIDE RECORDS SUMMARY | 2025-04-12 11:57 | XMS_ITS | Encounter Summary ---
Author Organization [facility] Address [address] [place] [address] Care Team Providers Care Director Loan Name Role Phone Alonso Mahajan Primary Care Provider [phone] Encounter Details Date Type Department Care Team (Late st Contact Info) Description 01/14/2021 Telephone [facility] Endoscopy [address] [place] [address] Juan Jeffrey RN Social History Tobacco Use Types Packs/Day Years Used Date Smoking Tobacco: Former Cigarettes 0 07/2013 - 06/2014 Smokeless Tobacco: Never Comments No Sex and Gender Information Value Date Recorded Sex Assigned at Not on file Legal Sex Female 12:04 AM EDT Gender Identity Not on file Sexual Orientation Not on file documented as of this encounter Plan of Treatment Not on file documented as of this encounter Visit Diagnoses Not on filedocumented in this encounter Additional Health Concerns Infection Onset Date Last Indicated Resolved Time R/O C.diff 01/23/2021 01/23/2021 01/30/2021 10:3 2 PM EDT documented as of this encounter Care Teams Director Loan Relationship Specialty Start Date End Date Alonso Mahajan [facility] Internal Medicine [address] [place] [address] PCP - General Internal Medicine 01/06/21 documented as of this encounter
--- OUTSIDE RECORDS SUMMARY | 2025-04-12 11:57 | XMS_ITS ---
Author Name [facility] Organization Unknown Care Team Organization Name Specialty Phone Email Start Date End Da te [facility] Termed, PROVIDER Primary Care 07/07/202302/23 [facility] Termed, PROVIDER Primary Care 04/28/202302/23
--- OUTSIDE RECORDS SUMMARY | 2025-04-12 11:58 | XMS_ITS | Encounter Summary ---
Author Organization [facility] Address [address] [place] [phone] Phone Care Team Providers Care Meter/Relay Technician Name Role Phone Alonso Mahjaan MD Unavailable [phone] Jenna Pepper MIXER AND BLENDER Primary Care Provider Shannan Drake MIXER AND BLENDER Primary Care Provid er Encounter Details Date Type Department Care Team (Late st Contact Info) Description 06/23/2021 Ancillary Orders [address] [address] Noé Cruz PA-C [address] [place] [address] Orthopedics & Sports Medicine, [facility]. [place], [place] [id number] [email or web address] Foot pain, right Social History Tobacco Use Types Packs/Day Years [...] high school, GED, job training, learning the Italian language, technical skills, or developing parenting skills)? [...] Office Visit [facility] [address] [place] [address] [place] [address] Vance Lepe MD [address] [facility], [address] [place] [address] 04/12/2026 2:00 PM EDT Office Visit [facility] [address] [place] [address] [place] [address] Shannan Drake CNP [address] [place] [address], [address] [place] [address] [email or web address] documented as of this encounter Results * XR FOOT 2 VIEWS (RIGHT) (06/23/2021 11:08 AM EST) Narrative SYSTEMGENERATED, DOCUMENTATION - 06/23/2021 11:08 AM EST This image report has been auto-finalized and has not been read by a Radiologist. Interpretation has been included in the provider encounter note for this date of service. us Noé Cruz PA-C [employer] XR LOWER EXTREMITY Final Result documented in this encounter Visit Diagnoses Diagnosis Foot pain, right Pain in soft tissues of limb Foot pain, right Pain in soft tissues of limb documented in this encounter Additional Health Concerns Infection Onset Date Last Indicated Resolved Time CoV-Risk 08/07/2021 08/07/2021 08/17/2021 1:24 AM EST CoV-Risk 10/29/2021 10/29/2021 11/09/2021 1:22 AM EDT CoV-Risk 09/08/2022 09/08/2022 09/19/2022 1:22 AM EST CoV-Risk 09/16/2024 09/16/2024 09/27/2024 1:21 AM EST Assessment Noted Time PHQ-9 Depression Total Score: 17 021 9:20 AM EST PHQ-2 Depression Total Score: 4 06/08/20 21 9:20 AM EST documented as of this encounter Care Teams Meter/Relay Technician Relationship Specialty Start Date End Date Jenna Pepper CNP [address] [place] [address] [email or web address] PCP - General Internal Medicine 06/23/21 03/25/23 Shannan Drake CNP [address] [place] [address], [address] [place] [address] [email or web address] PCP - General Family Medicine 03/26/23 Alonso Mahajan MD [address] [place] [address] [email or web address] Insurance Assigned Provider 08/03/20 10/03/22 documented as of this encounter Additional Source Comments The information contained in this document represents components of the legal health record. It is not the complete legal health record.[facility]
== END ==
LOC: HO.SL 10:06
PROVIDERS: PCP Internal Medicine; Visit Provider Psychiatry & Neurology Neurology
DX: G47.33 Obstructive sleep apnea (adult) (pediatric) (principal)
CPT/HCPCS: 95806

== ENCOUNTER → 2025-04-12 10:31 | Outpatient (BNV) | payer OTHER, SELFPAY | PROVIDERS: PCP Internal Medicine; Visit Provider Internal Medicine | DX: G47.33 Obstructive sleep apnea (adult) (pediatric) (principal) | CPT/HCPCS: 95806 ==

== ENCOUNTER 2025-04-17 14:15 | Outpatient (AMB) | payer OTHER, SELFPAY ==
--- NOTE | 2025-04-17 14:53 | MHC.OFFVIS ---
Intake Visit Reasons: 2 migraine Allergies Unable to Assess Allergy (Unverified 12/15/21 15:16) Medication List - Last Reconciled 04/17/25 by Yuliya Herr MD aripiprazole 5 mg PO DAILY clonazepam 1 mg PO BID PRN cyclobenzaprine 10 mg PO TID fluticasone propionate 50 mcg/actuation 2 sprays intranasal DAILY lamotrigine 100 mg PO DAILY levocetirizine (Xyzal) 5 mg PO DAILY melatonin 5 mg PO BEDTIME PRN naratriptan take 1 tab at onset of headache; if no relief may repeat 1 tab after at least 4 hrs; max = 2 tabs/24 hrs PO pantoprazole 40 mg PO DAILY prazosin 1 mg PO BEDTIME 30 days rizatriptan 10 mg PO Q2-4H PRN 30 days MDD 20mg venlafaxine ER 225 mg PO DAILY HPI Comments Details: This is a 35-year-old right-handed woman who 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 During the seizure she would go blank and she felt paralyzed. In her estimate they lasted between 5 and 15 minutes. These seizures stopped at age 17 and have not recurred. She has never had a generalized convulsion. She was seen by Dr. Cain Sanchez at [facility] for this and used to get MRIs of the brain every 6 months and had an EEG the result of which is not available. There was some question of a mitochondrial disorder which was not confirmed. Starting at age 11, she started having migraine headaches. She has a family history of migraines in her mother and sister. Current migraine frequency for the last 4 years is about twice a week. Most of her migraines now started during sleep when she wakes up with it. When they come on during the waking. She starts to feel tense followed by sharp pains in and around the eyes and at the peak of the migraine she gets some slurring of his speech, unsteady gait and blurred vision all over. She has no nausea vomiting. She gets photophobia and sonophobia throughout the migraine. Her most effective treatment his 2 Excedrin and is cyclobenzaprine taken at the onset of the migraine with which she may be able to abort it in 1-2 hours. At other times she takes the Excedrin followed by naratriptan 2.5 mg and the headache may last 5-6 hours. If untreated, the usual migraine duration is 24-48 hours. The only trigger she has identified is strong perfumes and scents. She tried migraine prophylaxis with propranolol but could not take it because of dizziness and low blood pressure. She failed Topiramate at 100 mg bid and also had side effects so it was DC/d. No other prophylactic medications have been tried. She has tried sumatriptan 50 mg in the past but it made her feel very hot and sensitive so it was stopped. The naratriptan does not work worked very well. Rizatriptan is working well as abortive therapy. [facility] Medical History (Updated 02/07/25 @ 11:14 by Yuliya Herr MD) Patellofemoral syndrome Spondylolisthesis at L5-S1 level History of vitamin D deficiency Keratosis pilaris HPV (human papilloma virus) anogenital infection Class 3 severe obesity due to excess calories with body mass index (BMI) of 45.0 to 49.9 in adult History of anemia History of seizure Mitochondrial disease Seasonal allergic reaction Migraine GERD (gastroesophageal reflux disease) Surgical History (Updated 12/23/21 @ 11:06 by Elizabeth Hill RN) H/O arthroscopic knee surgery Hx of tonsillectomy Hx of adenoidectomy Social History Household Members: None Patient Tobacco Use Status: Never used Tobacco Review of Systems Const Details: She reports fatigue and weight gain. She has had allergies and deviated nasal septum with symptoms of stuffiness nosebleeds and sinus pain. Occasional heartburn. She has some difficulty maintaining sleep. She has some teeth grinding and snores at night with a question of obstructive sleep apnea. In the Psychiatric her review of systems she notes anxiety nervousness depression stress and agitation. She has had some musculoskeletal symptoms of pain muscle and joint pain stiffness back pain and neck pain. She also reports brief vertigo on turning in bed from side to side for the last 1 year. It lasts for a few seconds. Reports headache(s) ENT Reports dizziness and Reports headache(s) Neuro Reports dizziness and Reports headache(s) Physical Exam Neuro Other: ?Neurological Abnormal neurological findings:??none.? Mental Status:?alert and oriented X 3,?Normal attention, orientation, memory and affect.? Cranial Nerves:?Pupils are equal, round and reactive to light. Fundoscopy shows normal disc bilaterally. External occular muscles are intact. Visual rivera are full, no ptosis. Face is symmetrical, no facial weakness or droop. Facial sensations are normal. Tongue protrudes in midline. Palate elevates symmetrically. Shoulder shrugging is normal..? Motor Examination:?Normal muscle tone, bulk and strength,?No atrophy or fasciculations,?No drift of the extended upper extremities,?Deep tendon reflexes are 2+?,?Plantars are flexor?.? Motor Strength:?Proximal Muscles (out of 5):5Distal Muscles (out of 5):5Neck Flexors (out of 5):5Neck Extensors (out of 5):5Deltoid (out of 5):5Biceps (out of 5):5Triceps (out of 5):5Serratus Anterior (out of 5):5Wrist Extensors (out of 5):5APB (out of 5):5Finger Spread (out of 5):5Ileopsoas (out of 5):5Quadriceps (out of 5):5Hamstrings (out of 5):5Tibialis Anterior (out of 5):5Peronei (out of 5):5EDB (out of 5):5Gastrocnemius (out of 5):5Straight Leg Raising:?90 degrees.? Sensory Exam:?Normal light touch, temperature, pinprick, vibration and joint-position sensations?,?Rhomberg sign is absent.? Coordination:?no ataxia,?no titubation,?bdtcqt-qu-wbuh, ljuc-gagq-mxol test and rapid alternating movements were normal.? Gait Exam:?Within normal limits.? Cerebellar Signs:?Hrlilo-rw-ybbt and ytqr-qk-wyqv is normal,?no dysdiadochokinesia?.? Extrapyramidal System:?No tremor, rigidity with normal facial expressions,?No bradykinesia, no bradyphrenia. Normal arm swing and posture. No propulsion or retropulsion.? Speech:?Normal,?no dysphasia or dysarthria..? Mini Mental Status Exam Level of Consciousness:?Alert.? Orientation:?Knows correct year, month, date, day and season,?Knows correct city, county and state. Knows correct location and floor.? Registration:?Able to register 3 objects.? Attention:?Serial 7's performed accurately.? Recall:?Able to recall 3 out of 3 objects.? Language:?Normal spontaneous speech, fluency, repetition,naming, comprehension, reading and writing.? Total Score:?30/30.? General Examination GENERAL APPEARANCE:?normal,?in no acute distress.? HEART:?S1, S2 normal,?no murmurs.? LUNGS:?clear anteriorly and posteriorly.? MUSCULOSKELETAL:?normal.? EXTREMITIES:?no edema.? PSYCH:?alert, oriented,?cognitive function intact,?cooperative with exam.? Results Reviewed Results Reviewed: 04/16/25 Sleep study shows moderately severe obstructive sleep apnea with a lowest O2 sats of 69% and 18 minutes of sats below 88% Assessment & Plan Assessment & Plan (1) Migraine: Code(s): G43.909 - Migraine, unspecified, not intractable, without status migrainosus Category: Medical (2) MYLES (obstructive sleep apnea): Code(s): G47.33 - Obstructive sleep apnea (adult) (pediatric) Category: Medical Plan Start prophylaxis with Emgality 120mg monthly Use Rizatriptan prn. CPAP with autoPAP 15cm pressure Medications: New galcanezumab-gnlm (Emgality Pen) 120 mg subcut QMONTH 1 mL 6RF 28 days Refilled rizatriptan One tablet at the onset of migraine. May repeat in 2 hours if necessary. Maximum limit of 2 tablets in a 24 hour. 10 mg PO Q2-4H PRN 9 tabs 4RF migraine headache 30 days MDD 20mg Coding Level of Care Code Est Pt Level 4 (56328) Diagnoses Migraine G43.909 MYLES (obstructive sleep apnea) G47.33
--- OUTSIDE RECORDS SUMMARY | 2025-04-17 17:31 | XMS_ITS | Clinical Summary ---
Author Organization [facility] Address [address] [place] [address] Phone Care Team Providers Care Filter Changing Technician Name Role Phone Shannan Drake Cindy [facility] Primary Care Provid er Allergies Active [...] topical warming agents like Icy Hot or Mesquite Hamer, was recommended to provide relief. The patient [...] potential side effect of drowsiness was discussed. Bmms-jdf-thlhnox pain medications such as Tylenol, ibuprofen, Motrin, [...] declines new referral. 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 Continue supportive measures including [...] in childhood; w/u with pediatric neurology at [facility]. Denies any recurrence, not currently on any [...] PM EST): Continue Abilify. To establish with [facility]. Assessment & Plan (01/03/2019 8:50 AM EDT): [...] protein shake or a protein bar or Romansh yogurt or cottage cheese to be consumed [...] rescheduling. Alternative referral sent to [facility] neuro. Assessment & Plan (04/06/2024 8:10 [...] New neurology consult generated. Previously followed by [facility] neurology but she requests a 2nd opinion. [...] viral in nature, given its sudden onset. Wwzb-nph-grkqptk cough suppressants and throat lozenges may provide [...] Would like to explore LARCs. Referring to SCHOOL AGE PROGRAM ASSOCIATE for consult. Routine general medical exam ination [...] EDT Office Visit [facility] [address] [place] [address] [place] [address] Shannan Drake CNP Encounter for health maintenance [...] Office Visit [facility] [address] [place] [address] [place] [address] Vance Lepe MD Encounter for insertion of intrauterine contraceptive device (Primary Dx); Counseling for control, oral contraceptives from Last 3 Months Immunizations Immunization Administration Dates Next Due COVID-19 (Pre-05/17) Pfizer Vaccine, mRNA, PF 11/28/2020,11/07/2020 DTP 12/22/1995, 3,1991,06/15,1991 KDdV-Isf-XPY 05/15/1992, 2,1991,03/15 HPV,quadrivalent 08/02/2007,04/08/2007, 7 Hepatitis B [...] high school, GED, job training, learning the Kyrgyz language, technical skills, or developing parenting skills)? [...] Visit [facility] [address] [place] [address] [place] [address] Vance Lepe MD [address] [place] [address], [address] [place] [address] 04/12/2026 2:00 PM EDT Office Visit [facility] [address] [place] [address] [place] [address] Shannan Drake, BARREL RIB MATTING MACHINE OPERATOR [address] [facility], 2nd [place] [address] [email or web address] Health Maintenance Due Date Last Done Comments [...] this topic Medical Devices Implanted Type Area Program Support Clerk Device Identifier Shelf Expiration Date Model / [...] HCG, urine Negative, Internal QCs acceptable Negative [facility] Other 04/09/2025 4:47 PM EDT Vance Lepe MD POINT OF CARE TEST ORDERABLES Final Result Performing Organization Address [facility] Co de Phone Number [id number] [place] [address] * Hepatitis C antibody, qualitative (04/27/2023 8:43 AM EDT) HCV NON-REACTIV E NON-REACTI VE [facility] Blood 04/27/2023 8:43 AM EDT 04/27/2023 8:52 AM EDT Shannan Drake CNP LAB BLOOD ORDERABLES Final Result Performing Organization Address City/[facility] Co de Phone Number [address] [address] * HM PAP SMEAR FOR RESULT ENTRY [...] Advance Directives For more information, please contact: [phone] (9AM - 5PM [facility], Wednesday-Wednesday) Documents on File Type Date Recorded Patient Inbound Call Center Agent Expl anation Healthcare Proxy 05/16/2019 10:50 AM Heal thcare Proxy - signed Care Teams Filter Changing Technician Relationship Specialty Start Date End Date Shannan Drake CNP [address] [place] [address], [address] [place] [address] [email or web address] PCP - General Family Medicine 03/26/23 Additional Source Comments The information contained in this document represents components of the legal health record. It is not the complete legal health record.[facility]
--- OUTSIDE RECORDS SUMMARY | 2025-04-17 17:31 | XMS_ITS | Encounter Summary ---
Author Organization [facility] Address [address] [place] [address] Phone Care Team Providers Care Polymer Scientist Name Role Phone Alonso Mahajan MD Unavailable [phone] Jenna Pepper CLOTH PRINTER HELPER Primary Care Provider Shannan Drake CLOTH PRINTER HELPER Primary Care Provid er Encounter Details Date Type Department Care Team (Late st Contact Info) Description 06/23/2021 Ancillary Orders [facility] Orthopedics & Sports Medicine [address] [place] [address] Noé Cruz PA-C [address] [place] [address] Orthopedics & Sports Medicine, [facility] [place] [address] [email or web address] Social History Tobacco Use [...] high school, GED, job training, learning the Sinhala language, technical skills, or developing parenting skills)? [...] Office Visit [facility] [address] [place] [address] [place] [address] Vance Lepe MD [address] [facility], [address] [place] [address] 04/12/2026 2:00 PM EDT Office Visit [facility] [address] [place] [address] [place] [address] Shannan Drake, IVANNA [address] [place] [address], [address] Floor [place]I [place] [address] [email or web address] documented as of this encounter Visit Diagnoses [...] documented as of this encounter Care Teams Polymer Scientist Relationship Specialty Start Date End Date Jenna Pepper CNP [address] [place] [address] PCP - General Internal Medicine 06/23/21 03/25/23 Shannan Drkae CNP [address] [place] [address], 2[address] [place] [address] PCP - General Family Medicine 03/26/23 Alonso Mahajan MD [address] [place] [address] Insurance Assigned Provider 08/03/20 10/03/22 documented as of this encounter Additional Source Comments The information contained in this document represents components of the legal health record. It is not the complete legal health record.[facility]
--- OUTSIDE RECORDS SUMMARY | 2025-04-17 17:31 | XMS_ITS | Clinical Summary ---
Author Organization [facility] Address [address] [place] [address] Care Team Providers Care Clinic Office Coordinator Name Role Phone Alonso Mahajan Primary Care Provider [phone] Allergies Active Allergy Reactions Criticality Noted Date [...] patient's age to complete this topic [place] [address] [place] [address] Care Teams Clinic Office Coordinator Relationship Specialty Start Date End Date Alonso Mahajan [facility] Internal Medicine [address] [place] [address] PCP - General Internal Medicine 01/06/21
--- OUTSIDE RECORDS SUMMARY | 2025-04-17 17:31 | XMS_ITS | Encounter Summary ---
Author Organization [facility] Address [address] [place] [address] Care Team Providers Care Corrections Specialist Name Role Phone Alonso Mahajan Primary Care Provider [phone] Encounter Details Date Type Department Care Team (Late st Contact Info) Description 01/14/2021 Telephone [facility] Endoscopy [address] [place] [address] Juan Jeffrey RN Social History Tobacco Use [...] documented as of this encounter Care Teams Corrections Specialist Relationship Specialty Start Date End Date Alonso Mahajan [facility] Internal Medicine [address] [place] [address] PCP - General Internal Medicine 01/06/21 documented as of this encounter
--- OUTSIDE RECORDS SUMMARY | 2025-04-17 17:31 | XMS_ITS | Encounter Summary ---
Author Organization [facility] Address [address] [place] [address] Phone Care Team Providers Care Swiss Type Screw Machine Operator Name Role Phone Alonso Mahajan MD Unavailable [phone] Jenna Pepper REDEVELOPMENT SPECIALIST Primary Care Provider Shannan Drake REDEVELOPMENT SPECIALIST Primary Care Provid er Encounter Details Date Type Department Care Team (Late st Contact Info) Description 06/23/2021 Ancillary Orders [address] [address] Noé Cruz PA-C [address] [place] [address] Orthopedics & Sports Medicine, [facility] [place], [place] [id number] [email or web address] Foot pain, right Social History Tobacco Use [...] high school, GED, job training, learning the Kazakh language, technical skills, or developing parenting skills)? [...] Office Visit [facility] [address] [place] [address] [place] [address] Vance Lepe MD [address] [facility], [address] [place] [address] [email or web address] 04/12/2026 2:00 PM EDT Office Visit [facility] [address] [place] [address] [place] [address] Shannan Drake CNP [address] [place] [address], [address] Floor [place] [address] [email or web address] documented as of this encounter Results * [...] documented as of this encounter Care Teams Swiss Type Screw Machine Operator Relationship Specialty Start Date End Date Jenna Pepper CNP [address] [place] [address] PCP - General Internal Medicine 06/23/21 03/25/23 Shannan Drake CNP [address] [place] [address], [address] [place] [address] PCP - General Family Medicine 03/26/23 Alonso Mahajan MD [address] [place] [address] [email or web address] Insurance Assigned Provider 08/03/20 10/03/22 documented as of this encounter Additional Source Comments The information contained in this document represents components of the legal health record. It is not the complete legal health record.[facility]
== END 2025-04-17 15:18 | disposition home or self-care (01) ==
LOC: HO.HSM 14:15
PROVIDERS: PCP Internal Medicine; Visit Provider Psychiatry & Neurology Neurology
DX: G43.909 Migraine, unspecified, not intractable, without status migrainosus (principal); G47.33 Obstructive sleep apnea (adult) (pediatric)
CPT/HCPCS: 99214

== ENCOUNTER 2025-07-16 15:28 | Outpatient (AMB) | payer OTHER, SELFPAY ==
--- NOTE | 2025-07-16 15:28 | A.OFFVIS_ITS ---
Vital Signs 07/16/25 15:34 Height 5 ft 3 in Weight 318 lb BMI 56.3 BP 128/88 Blood Pressure Location Lt brachial Position Sitting Respiration 16 Pulse 116 H Pulse Source Pulse Oximeter Pulse Oximetry (%) 98 Oxygen Delivery Method Room Air Intake Visit Reasons: 3m headache Warehouse Person Required: No Allergies morphine Allergy (Intermediate, Verified 07/16/25 15:35) Hives HPI Comments Details: Tara is a 35-year-old female patient with a past medical history of cori otis, childhood seizures, and MYLES who is here today for a follow up visit. According to previous documentation by Dr. Herr, she has a history of absence seizures starting at age 11 for which she has in the past been treated with Depakote for a proximally 1 year. She would ?go blank and felt paralyzed?. Her episodes lasted a proximally 5-15 minutes. Her seizure stopped by age 17 and have not reoccurred. She had never had any generalized tonic-clonic activity. She has been followed by Dr. Cain Sanchez at [facility] and did have both MRI imaging and EEG evaluation upon diagnosis. Her primary concern as of late has been her migraine-type headaches. She does have a family history of migraine in both her mother and sister and at the time of her last visit was having at least 4 migraine-type headaches per week. She would often wake up from sleep with her migraine and also had a very tense sensation with pain in and around her eyes at the peak of her migraine. She also describes some slurring of speech and unsteady gait as well as blurred vision at times. She denied any nausea or vomiting. She did test has some photophobia and sonophobia throughout the migraine. She was taking Excedrin and cyclobenzaprine at onset of her migraine with marginal benefit. At the time of our last visit with Dr. Herr, she was placed on Emgality and also provided a trial of rizatriptan 10 mg for abortive therapy. She tells me today that since starting in the Emgality, her migraines have been significantly better. She has had an almost 100% reduction in her migraines since initiating the medication. She has used the rizatriptan only once since she got the prescription and she feels that it helped to abort her migraine within about an hour. She tolerated medication well without any side effects. Past medication trials include: Propranolol-dizziness and low blood pressure Topiramate-side effects/unable to tolerate Cyclobenzaprine-some marginal benefit Venlafaxine-currently taking for moods without any major impact on headaches PFSH Medical History (Updated 07/16/25 @ 15:50 by Rosana Rashid CNP) Patellofemoral syndrome Spondylolisthesis at L5-S1 level History of vitamin D deficiency Keratosis pilaris HPV (human papilloma virus) anogenital infection Class 3 severe obesity due to excess calories with body mass index (BMI) of 45.0 to 49.9 in adult History of anemia History of seizure Mitochondrial disease Seasonal allergic reaction Migraine GERD (gastroesophageal reflux disease) Surgical History (Updated 12/23/21 @ 11:06 by Elizabeth Hill RN) H/O arthroscopic knee surgery Hx of tonsillectomy Hx of adenoidectomy Social History Household Members: None Patient Tobacco Use Status: Never used Tobacco Review of Systems Const All systems reviewed & are unremarkable except as noted in HPI and below Physical Exam Vital Signs: Last Vital Signs Pulse 116 H 07/16/25 15:34 Resp 16 07/16/25 15:34 BP 128/88 07/16/25 15:34 Pulse Ox 98 07/16/25 15:34 Oxygen Delivery Method Room Air 07/16/25 15:34 BMI result Body Mass Index 56.3 Const General: cooperative, healthy appearing, comfortable and no acute distress Nutritional Appearance: well nourished Orientation/consciousness: patient oriented x3 Limitations: no limitations HEENT Head: Yes normal to inspection and Yes normocephalic Eyes General: appearance normal, both eyes and all related structures Visual Rivera: normal visual rivera by confrontation Alignment and Position: alignment normal Periorbital: periorbital findings normal Eyelids: Yes eyelids normal Conjunctivae: conjunctivae normal Sclerae: sclerae normal Direct Ophthalmoscopy: normal light reflex Neck Neck: Yes normal visual inspection and Yes full ROM General: Yes no CVA tenderness Back/Spine/Pelvis Back: no CVA tenderness Cervical Spine: normal cervical lordosis Thoracic/Lumbar Spine: thoracic and lumbar spine normal to inspection Neuro General: patient oriented x3 Cranial nerves: Yes CN's II-XII intact bilaterally and Yes Facial sensation int act/muscles of mastication intact Cognition (Neuro): normal cognition Gait exam (Neuro): Normal gait present Motor exam (neuro): no tremor noted Sensory Exam: double simultaneous stimulation for sensation normal Romberg Test: Negative Pupils: Normal pupillary reactivity/response: bilateral Psych Appearance: grossly normal Mental Status: mental status grossly normal Speech and movement: Normal speech and movement present and Clear speech present Affect: normal affect Attitude: cooperative Thought process: Normal thought process present Thought content: Normal thought content present Insight: Good insight present (Psych) Judgement: Good judgement present (Psych) Assessment & Plan Assessment & Plan (1) Migraine without aura and without status migrainosus, not intractable: Code(s): G43.009 - Migraine without aura, not intractable, without status migrainosus Category: Medical Plan Tara is a 35-year-old female patient with a past medical history of migraine, childhood seizures, and MYLES who is here today for a follow up visit. She has not had any recurrent seizure events since age 17. She is on lamotrigine 100 mg daily but this is for moods. She has been following specifically for her migraine-type headaches. Her headaches are well-controlled at this point on Emgality. She has seen a near 100% improvement in her headaches since starting the medication. She is very happy and is tolerating the medication well. She was also started on rizatriptan 10 mg which has been very beneficial to her as well. We will keep her on the same regimen and I will see her again in 6 months or sooner if needed. -continue Emgality 120 mg subcutaneous monthly injection -continue rizatriptan 10 mg as needed for migraine abortive therapy -follow up in 6 months or sooner if needed Coding Level of Care Code Est Pt Level 3 (50146) Diagnoses Migraine without aura and without status migrainosus, not intractable G43.009
[2025-07-16 15:34] VITALS: BP 128/88; PULSE 116; RESP 16; O2SAT 98; BMI 56.3
--- OUTSIDE RECORDS SUMMARY | 2025-07-16 18:29 | XMS_ITS | Encounter Summary ---
Author Organization [facility] Address [address] [place] [address] Care Team Providers Care Acidity Tester Name Role Phone Alonso Mahajan Primary Care Provider [phone] Encounter Details Date Type Department Care Team ([facility] st Contact Info) Description 01/14/2021 Telephone [facility] Endoscopy [address] [place] [address] Juan Jeffrey RN Social History Tobacco Use Types Packs/Day Years Used Date Smoking Tobacco: Former Cigarettes 0.9 0 07/2013 - 06/2014 Smokeless Tobacco: Never [...] documented as of this encounter Care Teams Acidity Tester Relationship Specialty Start Date End Date Alonso Mahajan [facility] Internal Medicine [address] [place] [address] PCP - General Internal Medicine 01/06/21 documented as of this encounter
--- OUTSIDE RECORDS SUMMARY | 2025-07-16 18:29 | XMS_ITS | Clinical Summary ---
Author Organization [facility] Address [facility] [email or web address] [place] [phone] Phone Care Team Providers Care Tape Calender Name Role Phone Shannan Drake Cindy [facility] Primary Care Provid er Allergies Active Allergy Reactions Criticality Noted Date Comments Morphine Hives,Swelling High 09/12/2018 Medications clonazePAM (KLONOPIN) 1 MG tablet Take 1 mg by mouth 2 (two) times a day (once in the morning and once in the afternoon). Takes 1 tab in the AM and [...] as needed. Active cyclobenzaprine (FLEXERIL) 10 MG tabletIndication s:Muscle spasms of neck TAKE 1 TABLET (10 MG TOTAL) BY MOUTH NIGHTLY AT BEDTIME NEEDED (FOR MUSCLE SPASM/TIGHTNESS). 30 tablet 1 11/09/19 25 Active rizatriptan (MAXALT) 10 MG tablet Take 10 mg by mouth as needed for migraine. May repeat in 2 hours if necessary. Maximum limit of 2 tablets in a 24 hour. 02/08/20 25 Active lamoTRIgine (LAMICTAL) 100 MG IMMEDIATE release tablet Take 100 mg by mouth daily. Active multivitamin-min erals-lutein (CENTRUM SILVER) Tab Take 1 tablet by mouth daily. Active biotin 1 mg tablet Take 1,000 mcg by mouth 3 (three) times a day. Active valACYclovir (VALTREX) 500 MG tablet Take 1 tablet by mouth daily. Active esomeprazole (NEXIUM) 40 MG capsuleIndicatio ns:Gastroesophag eal reflux disease without esophagitis Take 1 capsule (40 mg total) by mouth daily. 90 capsule 3 04/11/20 25 Active EMGALITY PEN 120 mg/mL subcutaneous injection INJECT 120 MG SUBCUTANEOUSLY EVERY MONTH FOR 28 DAYS 04/19/20 Active ferrous sulfate 324 mg (65 mg [place] iron) TbEC Take 324 mg by mouth daily with breakfast. Active cholecalciferol (VITAMIN D3) 25 MCG (1,000 unit) tablet Take 2,000 Units by mouth daily. Active tirzepatide, weight loss, (ZEPBOUND) 2.5 mg/0.5 mL subcutaneous penIndications:M orbid obesity with BMI of 50.0-59.9, adult,Obstructiv e sleep apnea syndrome,Gastroe sophageal reflux disease without esophagitis Inject 0.5 mL (2.5 mg total) under the skin every 7 days. 2 mL 07/04/20 Active Hospital, Clinic, or Other Facility Administered Medication Ordered Dose Route Frequency Start Date End Date Status copper (PARAGARD) intrauterine device 1 eachIndications:Encounte r for insertion of intrauterine contraceptive device 1 each Utrn Every 10 years 04/09/2025 Active levonorgestreL (MIRENA) 21 mcg/24hr (up to 8 yrs) 52 mg intrauterine device 1 each 1 each Utrn Every 8 years 04/27/2025 Active Active Problems Problem Noted Date Diagnosed Date Malignant melanoma of torso excluding breast 04/2025 Obsessive-compulsive disorder, unspecified 07/04 Low HDL (under 40) 05/02/2025 Dysplastic nevus of trunk 04/11/2025 Assessment & Plan (04/19/2025 6:28 PM EDT): The dysplastic nevus on her back presents a low overall cancer risk. However, the fact that it has increased in size is a cause for concern. - Referral to [facility] in [place] will be made for further evaluation. Impaired fasting glucose 04/11/2025 Assessment & Plan (04/19/2025 6:35 PM EDT): FBG 107 w/ HgbA1c 5.7. Continue dietary efforts, limit simple carbs and avoid concentrated sweets or added sugars. - Monitor glucose. Rib pain 04/11/2025 Assessment & Plan (04/19/2025 6:28 PM EDT): The pain in her rib cage area is likely due to a strained muscle between the ribs, possibly from coughing or twisting incorrectly. The pain should subside over the next few weeks. - She is advised to apply heat to the area and avoid lifting heavy objects, particularly away from her body. If the pain worsens or persists beyond 4 to 6 weeks, she should contact the office. Allergic rhinitis 02/14/2025 Pain in left arm [...] topical warming agents like Icy Hot or [place], was recommended to provide relief. The patient [...] potential side effect of drowsiness was discussed. Ogpb-xku-jueceic pain medications such as Tylenol, ibuprofen, Motrin, or naproxen can be used as needed. Frequent nosebleeds 04/06/2024 Assessment & Plan (04/06/2024 [...] profuse bleeding occurs cauterization may be needed. Chronic bilateral low back pain without sciatica [...] declines new referral. Discussed potential benefit of outdoor emergency care technician, she will consider. Continue supportive measures including relative rest, gentle stretching, OTC pain relief. Radiating back pain 03/26/2023 03/26/2023 MYLES (obstructive sleep apnea) 03/26/2023 Assessment & Plan (04/19/2025 6:34 PM EDT): Hx of snoring w/ recent waking and persistent migraine headaches. No witnessed episodes of apnea. - She has a sleep study scheduled for tomorrow, as her migraines predominantly occur at night. Assessment & Plan (04/06/2024 8:24 AM EDT): [...] audiology consult. Hypertriglyceridemia 03/26/2023 Assessment & Plan (04/19/2025 6:33 PM EDT): Likely familial. Triglycerides historically in the 200-300 range. - Will continue routine monitoring. - Continue efforts re: diet and exercise. Limit simple carbs and concentrated sweets. Avoid trans and saturated fats. Assessment & Plan (04/06/2024 8:25 AM EDT): [...] in childhood; w/u with pediatric neurology at [facility]. Denies any recurrence, not currently on any [...] Vitamin D deficiency 01/03/2019 Assessment & Plan (04/19/2025 6:34 PM EDT): Vitamin d3 level previously as low as 10. Had been corrected with supplement, not currently taking. Will re-check. Assessment & Plan (03/26/2023 4:41 PM EDT): Vitamin d3 level previously as low as 10. Had been corrected with supplement, not currently taking. Will re-check. Assessment & Plan (06/09/2020 10:01 PM EST): Check level. Assessment & Plan (01/03/2019 7:48 AM EDT): Continue vitamin D 5,000 IU daily for the next 1-2 months then retest. Gastroesophageal reflux disease 12/19/2018 Assessment & Plan (04/19/2025 6:28 PM EDT): She reports that pantoprazole has not improved her symptoms and may have worsened them. She has been taking Tums about 5-6 times a week. - A follow-up with her pediatric dentist is recommended, especially if she continues to need Tums frequently. An H. pylori test will be ordered. - A prescription for Nexium (esomeprazole) will be provided. Assessment & Plan (11/01/2024 8:36 AM EDT): [...] Major depressive disorder 09/12/2018 Assessment & Plan (04/19/2025 6:30 PM EDT): Recurrent depression per history, current sx moderate per screening. Co-morbid anxiety and PTSD. - Continues on venlafaxine, fluvoxamine, Abilify, and prazosin. Also on Lamictal for mood stabilization and has been stable on this medication for over a year. Followed by psychiatry; has a psych prescriber. Assessment & Plan (04/06/2024 8:19 AM EDT): [...] PM EST): Continue Abilify. To establish with [facility]. Assessment & Plan (01/03/2019 8:50 AM EDT): Reviewed for medication consult with Dr. Aziza given difficulty establishing with outpatient psychiatrist. She [...] of 50.0-59.9, adult 08/26 Assessment & Plan (04/19/2025 6:33 PM EDT): Weight has been generally stable, BMI 52.70. - She has been prescribed both Zepbound and Wegovy, but neither was covered by her insurance and they are otherwise cost prohibitive. She is not a good candidate for phentermine given her anxiety and PTSD. She has taken Wellbutrin previously and is currently taking Topamax - neither of which resulted in weight loss. - Previously consulted with bariatric surgeon re: possible sleeve gastrectomy but she has decided not to move forward - Continue efforts re: healthy, balanced diet and active lifestyle. Assessment & Plan (05/17/2024 1:11 PM EDT): [...] protein shake or a protein bar or Chinese yogurt or cottage cheese to be consumed [...] Migraine without aura 09/12/2018 Assessment & Plan (04/19/2025 6:34 PM EDT): She is currently on Topamax for her migraines but reports experiencing nerve pain with it. - She plans to discuss discontinuing Topamax with her neurologist next week. Assessment & Plan (05/17/2024 12:59 PM EDT): [...] has declined rescheduling. Alternative referral sent to [facility] neuro. Assessment & Plan (04/06/2024 8:10 AM [...] New neurology consult generated. Previously followed by [facility] neurology but she requests a 2nd opinion. [...] viral in nature, given its sudden onset. Tmnm-nwe-stmbcks cough suppressants and throat lozenges may provide some relief. If her condition worsens, she develops a fever, or experiences shortness of breath, she is to inform us immediately. Skin irritation 05/17/2024 04/19/2025 Assessment & Plan (05/17/2024 1:07 PM EDT): [...] friction and promote healing. Perioral dermatitis 04/06/2024 04/19/20 Assessment & Plan (08/08/2024 10:01 AM EST): [...] the office for a stronger treatment option. Preoperative examination 02/29/2024 Pain of left calf 11/10/2023 05/17/2024 Assessment [...] specialist or physical therapy will be considered. Muscle spasms of neck 05/12/20232024 Assessment & Plan (05/17/2024 12:54 PM EDT): [...] to start. F/u PRN. Uses oral contraception 05/12/202303/27 Assessment & Plan (04/06/2024 8:22 AM EDT): [...] reviewed. Recommend barrier methods for STI prevention. Right lumbar radiculopathy 03/26/2023 03/26/2023 0 03/26/2023 [...] Would like to explore LARCs. Referring to FIELD TECHNICAL ASSISTANT for consult. Routine general medical exam ination [...] Encounters Date Type Department Care Team Description 07/05/[address] [place] [address] Shannan Drake CNP Med Change Request 07/05/[address] [place] [address] Philomena Rod Medication Prior Authorization (ZEPBOUND ) 07/04/2025 1:30 PM EST Office Visit [address] [place] [address] Shannan Drake CNP Morbid obesity with BMI of 50.0-59.9, adult (Primary Dx); Malignant melanoma of torso excluding breast; Obstructive sleep apnea syndrome; Gastroesophageal reflux disease without esophagitis 04/27/2025 2:50 PM EDT Office Visit [facility] [address] [place] [address] [place] [address] Vance Lepe MD Encounter for IUD insertion (Primary Dx) 04/19/2025 10:28 AM EDT - 04/19/2025 11:59 PM EDT Hospital Encounter [facility] [address] [place] [address] Shannan Drake, DELIVERY MGR Discharge Disposition: Home or Self Care from Last 3 Months Immunizations Immunization Administration Dates Next Due COVID-19 (Pre-05/17) Pfizer Vaccine, mRNA, PF 11/28/2020,11/07/2020 DTP 12/22/1995, 3,1991,06/15,1991 [id number] 05/15/1992, 2,1991,03/15 HPV,quadrivalent 08/02/2007,04/08/2007, 7 Hepatitis B [...] high school, GED, job training, learning the Brazilian language, technical skills, or developing parenting skills)? [...] have you moved in the past 12 wed? One time 04/05/2024 Paying for Meds Answer [...] Sign Reading Time Taken Comments Blood Pressure 102/68 07/04/2025 1:30 PM EST Pulse 101 07/04/2025 1:30 PM EST Temperature 36.6 C (97.8 F) 07/04/2025 1:30 PM EST Respiratory Rate 20 09/16/2024 10:5 2 AM EST Oxygen Saturation 98% 07/04/2025 1:30 PM EST Inhaled Oxygen Concentration - - Weight 144.4 kg (318 lb 6.4 oz) 07/04/2025 1:30 PM EST Height 162.6 cm (5' 4 ) 04/11/2025 2:01 PM EDT Body Mass Index 54.65 04/11/2025 2:01 PM EDT Plan of Treatment Upcoming Encounters Date Type Department Care Team (Late st Contact Info) Description 11/26/2025 3:00 PM EDT Office Visit [facility] [address] [place] [address] Shannan Drake, IVANNA [address] [facility], [address]nd Floor [place] [address] [email or web address] 04/12/2026 2:00 PM EDT Office Visit [facility] [address] [place] [address] Shannan Drake, IVANNA [address] [facility], [address] Floor [place] [address] [email or web address] Health Maintenance Due Date Last Done Comments PNEUMOCOCCAL VACCINES (0-49 years) (1 of 2 - PCV) 2010 COVID-19 VACCINE ( - 2024- season) 2025 05/15/2022, 07/09/2021, 11/28/2020, Additional history exists INFLUENZA VACCINE (#1) 2026 , 05/15/2022, 05/15/2022, Additional history exists Postponed from 02/23/2025 (Patient Declines / Guardian Declines) DEPRESSION SCREENING 06/28/2026 06/28/2025, 06/28/20 PAP SMEAR 2028 01/12/2023, 12/25, 01/03/2019, Additional history exists IUD 04/27/2033 04/27/2025 Adult Td,Tdap Booster 12/06/2034 12/06/2024 , 04/05/2024, 09/19/2012, Additional history exists HIB VACCINES Completed 05/15/1992, 04/26, 1991, Additional history exists MENINGOCOCCAL VACCINES (ACWY) Completed 04/21/2007 HEPATITIS C SCREENING Completed 04/19/2025, 023 HIV ONE-TIME SCREENING (18-65 YEARS) Completed 04/19/2025, 12/21/2015 SMOKING STATUS SCREENING (Once After 26 Yrs) Completed 04/19/2025 HEPATITIS A VACCINES Aged Out No long er eligible based on patient's age to complete this topic MENINGOCOCCAL VACCINES (B) Aged Out N o longer eligible based on patient's age to complete this topic Medical Devices Implanted Type Area [employer]roomcorn Thresher Device Identifier Shelf Expiration Date Model / Serial / Lot Iud Implanted: (Quantity not on file) Intrauterine Device Procedures Procedure Name Priority Date/Time Associated Diagnosis Comments CHLAMYDIA TRACHOMATIS AND NEISSERIA GONORRHOEAE NUCLEIC ACID DETECTION Routine 04/19/2025 10:40 AM EDT Screening examination for STI LAMOTRIGINE LEVEL Routine 04/19/2025 10: 27 AM EDT Moderate episode of recurrent major depressive disorder COMPREHENSIVE METABOLIC PANEL (CMP) Routine 04/19/2025 10:27 AM EDT Hypertriglyceridemi a Vitamin D deficiency Impaired fasting glucose CBC Routine 04/19/2025 10:27 AM EDT Moderate episode of recurrent major depressive disorder SYPHILIS ANTIBODY SCREEN ASSAY Routine 04/19/2025 10:27 AM EDT Screening examination for STI HEMOGLOBIN A1C Routine 04/19/2025 10:27 AM EDT Impaired fasting glucose TSH WITH REFLEX Routine 04/19/2025 10:27 AM EDT Morbid obesity with BMI of 50.0-59.9, adult LIPID PANEL Routine 04/19/2025 10:27 AM EDT Hypertriglyceridemi a 25-OH VITAMIN D Routine 04/19/2025 10:27 AM EDT Vitamin D deficiency HEPATITIS C ANTIBODY, QUALITATIVE Routine 04/19/2025 10:27 AM EDT Screening examination for STI HIV-1/2 ANTIGEN/ANTIBODY Routine 04/19/2025 10:27 AM EDT Screening examination for STI HM PAP SMEAR FOR RESULT ENTRY ONLY Routine 01/12/2023 OUTSIDE HIV Routine 12/21/2015 from Last 3 Months or Most Recently Relevant to Health Maintenance Results * Chlamydia Trachomatis and Neisseria Gonorrhoeae Nucleic Acid Detection (04/19/2025 10:40 AM EDT) CHLAMYDIA TRACHOMATIS Not Detected Not Detected [facility] NEISERIA GONORRHOEAE Not Detected Not Detected [facility] SPECIMEN TYPE URINE [facility] Urine (Urine) 04/19/2025 10: 40 AM EDT 04/20/2025 10:48 AM EDT us Shannan Drake DELIVERY MGR LAB GENERAL ORDERABL ES Final Result [address] [address] * (ABNORMAL) Comprehensive metabolic panel (04/19/2025 10:27 AM EDT) SODIUM 137 133 - 146 mmol/L [facility] POTASSIUM 3.8 3.3 - 5.1 mmol/L [facility] CHLORIDE 102 96 - 108 mmol/L [facility] CO2 20(L) 21 - 35 mmol/L [facility] BUN 8 6 - 19 mg/dL [facility] CREATININE 0.70 0.5 - 1.5 mg/dL [facility] GLUCOSE 87 70 - 99 mg/dL [facility] ALBUMIN 4.2 3.9 - 4.8 g/dL [facility] TOTAL PROTEIN 7.3 6.5 - 8.0 g/dL [facility] CALCIUM 8.9 8.4 - 10.3 mg/dL [facility] ALKALINE PHOSPHATASE 171(H) 39 - 117 U/L [facility] TOTAL BILIRUBIN 0.5 0.0 - 1.2 mg/dL [facility] AST 87(H) 0 - 37 U/L [facility] ALT 97(H) 0 - 40 U/L [facility] GLOBULIN 3.1 1 - 4.8 g/dL [facility] EGFR 116 >59 mL/min/1.7 3m2 [facility] Comment:Estimated glomerular filtration rate calculated using the CKD-EPI refit equation. ANION GAP 19 10 - 20 mmol/L [facility] Blood 04/19/2025 10:2 7 AM EDT 04/19/2025 10:32 AM EDT us Shannan Cindy Murtland DELIVERY MGR LAB BLOOD BKR ORDERA BLES Final Result [address] [address] * HIV-1/2 antigen/antibody (04/19/2025 10:27 AM EDT) HIV-1/2 Antigen/Antibo dy NON-REACTI VE NON-REACTI VE [facility] Blood 04/19/2025 10:2 7 AM EDT 04/19/2025 10:32 AM EDT us Shannan Drake [facility] LAB BLOOD BKR ORDERA BLES Final Result Performing Organization Address [facility]/ZIP Co de Phone Number [address] [address] * TSH with reflex (04/19/2025 10:27 AM EDT) TSH 2.44 0.27 - 4.20 uIU/mL [facility] Blood 04/19/2025 10:2 7 AM EDT 04/19/2025 10:32 AM EDT us Shannan Drake [facility] LAB BLOOD BKR ORDERA BLES Final Result Performing Organization Address City/[facility]/ZIP Co de Phone Number [address] [address] * Hepatitis C antibody, qualitative (04/19/2025 10:27 AM EDT) HCV NON-REACTIV E NON-REACTI VE [facility] Blood 04/19/2025 10:2 7 AM EDT 04/19/2025 10:32 AM EDT us Shannan Drake DELIVERY MGR LAB BLOOD BKR ORDERA BLES Final Result [address] [address] * Syphilis antibody screen (04/19/2025 10:27 AM EDT) RPR NON-REACTIV E NON-REACTI VE [facility] Blood 04/19/2025 10:2 7 AM EDT 04/19/2025 10:32 AM EDT [facility] ORDERA BLES Final Result [address] [address] * (ABNORMAL) 25-OH vitamin D (04/19/2025 10:27 AM EDT) 25 OH VIT D (TOTAL) 29(L) 30 - 60 ng/mL [facility] Blood 04/19/2025 10:2 7 AM EDT 04/19/2025 10:32 AM EDT Shannan Drake [facility] LAB BLOOD BKR ORDERA BLES Final Result [address] [address] * (ABNORMAL) Lamotrigine level (04/19/2025 10:27 AM EDT) LAMOTRIGINE <2.0(L) 4.0 - 18.0 mcg/mL [facility] Comment:This test was develo ped and its performance characteristics determined by the [facility]. It has not been cleared or approved by the US Food and Drug Administration. This laboratory is certified under CLIA as qualified to perform high complexity clinical laboratory testing. Blood 04/19/2025 10:2 7 AM EDT 04/19/2025 10:32 AM EDT Shannan Drake [facility] LAB BLOOD BKR ORDERA BLES Final Result [facility] [address] [place] [address] * (ABNORMAL) CBC (04/19/2025 10:27 AM EDT) WBC 9.52 4.00 - 11.00 K/uL [facility] RBC 3.97(L) 4.00 - 5.20 M/uL [facility] HGB 10.9(L) 12.0 - 16.0 g/dL [facility] HCT 33.1(L) 36.0 - 46.0 % [facility] PLT 212 150 - 450 K/uL [facility] MCV 83.4 80.0 - 100.0 fL [facility] MCH 27.5 27.0 - 31.0 pg [facility] MCHC 32.9 32.0 - 36.0 g/dL [facility] RDW 14.6(H) 11.5 - 14.5 % [facility] MPV 10.9 8.4 - 12.0 fL [facility] NRBC 0.00 0.00 /100 WBCs [facility] ABSOLUTE NRBC 0.00 0.00 K/uL [facility] Blood 04/19/2025 10:2 7 AM EDT 04/19/2025 10:32 AM EDT us [facility] BKR ORDERA BLES Final Result Performing Organization Address [facility]/ZIP Co de Phone Number [facility] [address] [place] [address] * Hemoglobin A1c (04/19/2025 10:27 AM EDT) HEMOGLOBIN A1C 5.5 4.3 - 5.8 % [facility] Blood 04/19/2025 10:2 7 AM EDT 04/19/2025 10:31 AM EDT [facility] BKR ORDERA BLES Final Result [address] [address] * (ABNORMAL) Lipid panel (04/19/2025 10:27 AM EDT) HDL 30 mg/dL [facility] Comment: Interpretation <40 mg/dL: Low HDL cholesterol (major risk factor for CHD) Greater than or equal to 60 mg/dL: High HDL cholesterol ( negative risk factor for CHD) HDL - cholesterol is affected by a number of factors, e.g. smoking, excerise, hormones, sex and age. CHOLESTEROL 153 0 - 240 mg/dL [facility] TRIGLYCERIDES 283(H) 30 - 160 mg/dL [facility] LDL 66 50 - 129 mg/dL [facility] Comment: LDL levels in terms of risk for coronary heart disease: <100 mg/dL: Optimal 100-129 mg/dL: Near or above optimal 130-159 mg/dL: Borderline high 160-189 mg/dL: High >190 mg/dL: Very High CARDIAC RISK RATIO 5.1(H) 3.3 - 4.4 C [facility] Blood 04/19/2025 10:2 7 AM EDT 04/19/2025 10:31 AM EDT Shannan Drake [facility] LAB BLOOD BKR ORDERA BLES Final Result [address] [address] * PAP SMEAR FOR RESULT ENTRY ONLY (01/12/2023) HM Pap smear NILM, HPV neg Historical Provider HEALTH MAINTENANCE Final Result * OUTSIDE HIV TEST (12/21/2015) HIV - External Neg Historical Provider LAB BLOOD ORDERABLES Julee l Result from Last 3 Months or Most Recently Relevant to Health Maintenance Insurance CIGNA PPO CIGNA PPO CIGNA PPO CIGNA PPO CIGNA PPO CIGNA PPO Advance Directives For more information, please contact: [phone] (9AM - 5PM [facility], Wednesday-Wednesday) Documents on File Type Date Recorded Patient Supervisor Tree Trimming Expl anation Healthcare Proxy 05/16/2019 10:50 AM Heal thcare Proxy - signed Care Teams Tape Calender Relationship Specialty Start Date End Date Shannan Drake CNP [address] [place] [address], [address] [place] [address] [email or web address] PCP - General Family Medicine 03/26/23 Additional Source Comments The information contained in this document represents components of the legal health record. It is not the complete legal health record.[facility]
--- OUTSIDE RECORDS SUMMARY | 2025-07-16 18:29 | XMS_ITS | Encounter Summary ---
Author Organization [facility] Address [address] [place] [address] Phone Care Team Providers Care Rehab Nursing Tech Name Role Phone Alonso Mahajan MD Unavailable [phone] Jenna Pepper [facility] Primary Care Provider Shannan Drake DATA MANAGEMENT CONSULTANT Primary Care Provid er Encounter Details Date Type Department Care Team (Late st Contact Info) Description 06/23/2021 Ancillary Orders [facility] [address] [place] [address] Noé Cruz PA-C [address] [place] [address] Orthopedics & Sports Medicine, [place], [place] [id number] [email or web address] Social History Tobacco Use Types Packs/Day Years [...] high school, GED, job training, learning the Trinidadian language, technical skills, or developing parenting skills)? [...] Description 11/26/2025 3:00 PM EDT Office Visit [facility] Primary Care [address] [place] [address] Sahnnan Drake, IVANNA [address] [facility], [address]nd [place] [address] 04/12/2026 2:00 PM EDT Office Visit [address] [place] [address] Shannan Drake, IVANNA [address] [facility], [address] [place] [address] documented as of this encounter Visit Diagnoses [...] documented as of this encounter Care Teams Rehab Nursing Tech Relationship Specialty Start Date End Date Jenna Pepper CNP [address] [place] [address] PCP - General Internal Medicine 06/23/21 03/25/23 Shannan Drake CNP [address] [place] [address], [address] [place] [address] PCP - General Family Medicine 03/26/23 Alonso Mahajan MD [address] [place] [address] Insurance Assigned Provider 08/03/20 10/03/22 documented as of this encounter Additional Source Comments The information contained in this document represents components of the legal health record. It is not the complete legal health record.[facility]
--- OUTSIDE RECORDS SUMMARY | 2025-07-16 18:29 | XMS_ITS | Clinical Summary ---
Author Organization [facility] Address [address] [place] [address] Care Team Providers Care Independent Consultant Name Role Phone Alonso Mahajan Primary Care Provider [phone] Allergies Active Allergy Reactions Criticality Noted Date [...] Health Maintenance Due Date Last Done Comments Cervical Cancer Screening 1991 HIV Screening 1991 HPV and Pap Smear 1991 Pap Smear 1991 Varicella Vaccines (1 of 2 - 13+ 2-dose series) 01/14/2004 DTaP,Tdap,and Td Vaccines (7 - Td or Tdap) 09/19/2022 09/19/2012, 01/16/2003, 12/22/1995, Additional history exists Alcohol/Substance Use Screening 07/26/2024 Influenza Vaccine (#1) 2025 , 05/25/2019, 09/12/2018, Additional history exists COVID-19 Vaccine ( season) 2025 11/28/2020, 11/07/2020 Hepatitis B Vaccines Completed 12/22/1995, 11/24/1995, 05/15/1995, Additional history exists Pneumococcal Vaccine: Pediatric (0-5 Years) and At-Risk Patients (6-50 Years) Aged Out No longer eligible based on patient's age to complete this topic Insurance [facility] Care Teams Independent Consultant Relationship Specialty Start Date End Date lAonso Mahajan [facility] [address] [place] [address] PCP - General Internal Medicine 01/06/21
--- OUTSIDE RECORDS SUMMARY | 2025-07-16 18:29 | XMS_ITS | Encounter Summary ---
Author Organization [facility] Address Formerly [facility], later [facility] [employer] [facility] [address] [place] [address] Phone Care Team Providers Care Chain Person Name Role Phone Alonso Mahajan MD Unavailable [phone] Jenna Pepper TELETYPE TELEGRAPHER Primary Care Provider Shannan Drake TELETYPE TELEGRAPHER Primary Care Provid er Encounter Details Date Type Department Care Team (Late st Contact Info) Description 06/23/2021 Ancillary Orders [address] [id number] Noé Cruz PA-C [address] [place] [address] Orthopedics & Sports Medicine, [place], [place] [phone] [email or web address] Foot pain, right Social History Tobacco Use [...] high school, GED, job training, learning the [place] language, technical skills, or developing parenting skills)? [...] in the past 12 wed? One time 06/08/2021 Paying for Meds Answer [...] Description 11/26/2025 3:00 PM EDT Office Visit [facility] [address] [place] [address] Shannan Drake, IVANNA [address] [employer] [facility], 2nd [place] [address] 04/12/2026 2:00 PM EDT Office Visit [address] [place] [address] Shnanan Drake, IVANNA 170 [facility], 2nd [place] [address] [email or web address] documented as of this encounter Results * XR FOOT 2 VIEWS (RIGHT) (06/23/2021 11:08 AM EST) Narrative SYSTEMGENERATED, DOCUMENTATION - 06/23/2021 11:08 AM EST This image report has been auto-finalized and has not been read by a Radiologist. Interpretation has been included in the provider encounter note for this date of service. us Noé Cruz PA-C IMG XR LOWER EXTREMITY Final Result documented in [...] documented as of this encounter Care Teams Chain Person Relationship Specialty Start Date End Date Jenna Pepper CNP [address] [place] [address] [email or web address] PCP - General Internal Medicine 06/23/21 03/25/23 Shannan Drake CNP [address] [place] [address], [address] [place] [address] PCP - General Family Medicine 03/26/23 Alonso Mahajan MD [address] [place] [address] [email or web address] Insurance Assigned Provider 08/03/20 10/03/22 documented as of this encounter Additional Source Comments The information contained in this document represents components of the legal health record. It is not the complete legal health record.[facility]
--- OUTSIDE RECORDS SUMMARY | 2025-07-16 18:29 | XMS_ITS | Data Portability ---
Author Organization [facility] [employer] Address [address] [place] [address] Care Team Providers Care Professor Of Family Medicine Name Role Phone NBA DAVILA Primary Care Provider Assessment No assessment recorded. Plan of Treatment Reminders Order Date Submit Date Provider Last Modified By Organization Details Last Modified Time Details Appointments None recorded. Lab rapid strep group A, throat 2022 023 [place] [id number], [address] [place] [address], [phone], 3 13:45:25 rapid flu (A+B) 2022 023 [place] [address], [address] [place] [address], [phone], 3 13:45:14 rapid SARS CoV 2 Ag, QL IA, respiratory specimen [address], [address] [place] [address], [phone], 3 13:45:14 Referral None recorded. Procedures None recorded. Surgeries None recorded. Imaging None recorded. Medication Orders amoxicillin [address] [id number], [address] [place], [address], 3 13:45:18 albuterol sulfate HFA 90 mcg/actuati on aerosol inhaler 2022 023 [id number], [address] [facility], [place], [address], 13:24:38 Patient TargetsNo targets recorded. Patient Instructions Encounter Date Encounter Id Patient Instructions Last Modified By Organization Details Last Modified Time 12/14/2022 [id number] cough: care instructions [place] [id number] Not available 12/14/2022 13:45:14 Reason for Referral None Reported. Results Created Date Observation Date Name Description Value Unit Range Abnormal Flag Note LastModifiedBy Organization Detail LastModifiedTime 12/15/1912/14/2022 rapid SARS CoV 2 Ag, QL IA, respi rator y speci men Unknown Analyte Normal =Negat day Not Available [facility], [address], 12/14/2022 12:36:15 12/15/19 23 12/14/2022 rapid SARS CoV 2 Ag, QL IA, respi rator y speci men Unknown Analyte negati ve Not Available [address] [place] [address], [phone], 12/14/2022 12:36:15 12/15/19 23 12/14/2022 rapid flu (A+B) Unknown Analyte Normal = Negati ve Not Available [address] [place] [address], [phone], 12/14/2022 12:36:05 12/15/19 23 12/14/2022 rapid flu (A+B) Unknown Analyte Normal = Negati ve Not Available [address] [place] [address], [phone], 12/14/2022 12:36:05 12/15/19 23 12/14/2022 rapid flu (A+B) Unknown Analyte negati ve Not Available [address] [place], [place] [address] [place], [address], 12/14/2022 12:36:05 12/15/19 23 12/14/2022 rapid flu (A+B) Unknown Analyte negati ve Not Available [facility] [address] [place] [address], [phone], 12/14/2022 12:36:05 Result Notes None recorded. Problems Name Problem SNOMED Code Status Onset Date Resolution Date Notes Provider Name and Address Organization Details Recorded Time Arthritis 4692658 Active 2022 LORAINE SANTOS null, [place] - [facility] 3 12:31:46 Migraine 98408320 Active 2022 LORAINE SANTOS null, [place] - [facility] 3 12:31:59 Gastroesophage al reflux disease 460866960 Active 2022 LORAINE SANTOS null, [place] - [facility] 3 12:32:18 Anxiety 09209106 Active 2022 LORAINE SANTOS null, [place] - [facility] 3 12:32:25 Depressive disorder 69788342 Active 2022 LORAINE SANTOS null, PA - [facility] 3 12:32:30 Post-traumatic stress disorder 25996710 Active 2022 LORAINE SANTOS null, [place] - [facility] 3 12:32:36 Anemia 800635956 Active 2022 LORAINE SANTOS null, PA - [...] Name and Address Organization Details Recorded Time 273950 morphine medicatio n Not available Not available [...] Vitals Date Recorded Heart rate Oxygen saturation Provider Name and Address Organization Details Last Updated DateTime 12/14/2022 105 /min 98 % Solis Nixon MD [address] [facility] [place], [address], [place] [facility] 12/14/2022 13:42:27 Date Recorded Body height Body mass index (BMI) Body weight Body temperature Respiratory rate Oxygen saturation Heart rate Systolic And Diastolic Provider Name and Address Organization Details Last Updated DateTime 160.02 cm 53.1 kg/m2 523935. 71 g 97.6 [degF] 18 /min 96 % 109 /min 128/87 mm[Hg] LORAINE SANTOS [place] [facility] 12:35:40 Social History Question Answer Notes LastModified [...] [facility] 12/14/2022 12:30:17 DTP 1 completed LORIANE GOODHIND null, [place] - [facility] 12/14/2022 12:30:17 Hep B, unspecified formulation 6 completed LORAINE GOODHIND null, PA - [facility] 12/14/2022 12:30:17 Hep B, unspecified formulation 5 completed LORAINE GOODHIND null, PA - [facility] 12/14/2022 12:30:17 Hep B, unspecified formulation 5 completed LORAINE GOODHIND null, [place] - [facility] 12/14/2022 12:30:17 OPV, trivalent 3 completed LORAINE GOODHIND null, PA - [facility] 12/14/2022 12:30:17 OPV, trivalent 6 completed LORAINE GOODHIND null, PA - [facility] 12/14/2022 12:30:17 OPV, trivalent 1 completed LORAINE ERICHIND null, PA - [facility] 12/14/2022 12:30:17 OPV, trivalent 1 completed LORAINE GOODHIND null, PA - [facility] 12/14/2022 12:30:17 Influenza, split virus, trivalent, PF 3 completed LORAINE ERICHIND null, PA - [facility] 12/14/2022 12:30:17 HPV, quadrivalent 8 completed LORAINE GOODHIND null, PA - [facility] 12/14/2022 12:30:17 HPV, quadrivalent 7 completed LORAINE GOODHIND null, PA - [facility] 12/14/2022 12:30:18 HPV, quadrivalent 7 completed LORAINE GOODHIND null, [place] - [facility] 12/14/2022 12:30:18 Td (adult), 2 Lf tetanus toxoid, preservative free, adsorbed 3 completed LORAINE GOODHIND null, PA - [...] 12/14/2022 12:30:18 Hib (HbOC) 1 completed LORAINE GOODHIND null, [place] - [facility] 12/14/2022 12:30:18 Hib (HbOC) 2 completed LORAINE ROBLEROND null, PA - [facility] 12/14/2022 12:30:18 Hib (HbOC) 1 completed LORAINE SANTOS null, PA - [facility] 12/14/2022 12:30:18 meningococcal MCV4P 7 completed LORAINE ROBLEROND null, PA - [facility] 12/14/2022 12:30:18 Influenza, split virus, quadrivalent, PF 9 completed LORAINE GOODHIND null, PA - [facility] 12/14/2022 12:30:18 Influenza, split virus, quadrivalent, PF 5 completed LORAINE GOODSMOOTHND null, PA - [facility] 12/14/2022 12:30:18 Influenza, split virus, quadrivalent, PF 9 completed LORAINE GOODSMOOTHND null, PA - [facility] 12/14/2022 12:30:18 Influenza, split virus, quadrivalent, PF 0 completed LORAINE GOODSMOOTHND null, PA - [facility] 12/14/2022 12:30:18 Influenza, split virus, quadrivalent, PF 1 completed LORAINE GOODSMOOTHND null, PA - [facility] 12/14/2022 12:30:18 Past Encounters Encounter ID Performer Location Encounter Start Date Encounter Closed Date Diagnosis/Indication Diagnosis SNOMED-CT Code Diagnosis ICD10 Code Diagnosis IMO Codes Diagnosis Note [id number] Solis Nixon MD [address] [address] [place] [address] 12/14/2022 12:21:10 12/14/2022 13:49:10 Upper respiratory infection 55653406 J06.9 Acute left otitis media 925374927 H66.92 Left ear drum with infectionS tart Amoxicilli n and take daily antihistam ine with Decongesta ntAlso start daily Flonase to help with the sinus pressure Sore throat 092900068 J0 2.9 Dyspnea 957894146 R06.00 Currently not wheezing. The albuterol inhaler [...] Aiken Member ID Guarantor Name 12/14/2022 1 [facility] [id number] Tara Silverio [id number] Tara Silverio Notes Date Note Type Note Provider Name and Address Organization Details Recorded Time 12/14/2022 text/html CoughReported by PatientCough, dyspnea, congestion, ear pain, hurts to swallow. Started after [employer] concert two nights ago. fever 101ROS as noted in the HPI Solis Nixon MD [address] [place], [address], [place] - [facility] 12/15/2022 13:25:25 OBGyn Episode No OBEpisode recorded.
--- OUTSIDE RECORDS SUMMARY | 2025-07-16 18:29 | XMS_ITS | Encounter Summary ---
Author Organization [facility] Address [address] [facility] [address] [place] [address] Phone Care Team Providers Care Heel Cutter Name Role Phone Shannan Drake CNP Primary Care Provid er Reason for Visit * Reason Comments Med Change Request Encounter Details Date Type Department Care Team ([facility] Contact Info) Description 07/05/2025 Refill [facility] [address] [place] [address] Shannan Drake, IVANNA [address] [facility], [address]nd [place] [address] [email or web address] Med Change Request Social History Tobacco Use Types Packs/Day Years [...] high school, GED, job training, learning the Niuean language, technical skills, or developing parenting skills)? [...] on file documented as of this encounter Progress Notes * Nadege Mathew, HAND TUBE WINDER - 07/05/2025 1:34 PM EST PA declined * Maritza Avilez MA - 07/05/2025 1:30 PM EST IMPORTANT - At least one Rx mismatch identified. Original(s) may be discontinued, , or different strength/form. Review required. At least one Rx below has no protocol and needs review. Rx Care Gap Status - Instructions for Clinical Staff (prescriber discretion applies): > Mismatch review guide > N/a - No action needed Visit Info Last visit: 07/04/2025 Shannan Drake CNP - Family Medicine [facility] > Requested f/u: Return in about 4 months (around 11/13/2025) for Next scheduled follow up. Upcoming visit: 11/26/2025 Shannan Drake CNP - Family [facility] ACTIONS TAKEN BY Maritza Avilez MA - Criteria met. Pharmacy comment: Alternative Requested:NOT COVERED. Rx(s) without protocol Renewal is at prescriber discretion. - tirzepatide Rx mismatch - Original(s) may be discontinued, , or changed to a different strength or form. documented in this encounter Plan of Treatment Upcoming Encounters Date Type Department Care Team (Late st Contact Info) Description 11/26/2025 3:00 PM EDT Office Visit [address] [place] [address] Shannan Drake CNP [address] [place] [address], [address] Floor [place] [phone] 04/12/2026 2:00 PM EDT Office Visit [address] [place] [address] Shannan Drake CNP [address] [place] [address], [address] [place] [address] [email or web address] documented as of this encounter Visit Diagnoses Diagnosis Morbid obesity with BMI of 50.0-59.9, adult Obstructive sleep apnea syndrome Obstructive sleep apnea (adult) (pediatric) Gastroesophageal reflux disease without esophagitis Esophageal reflux documented in this encounter Additional Health Concerns Assessment Noted Time PHQ-9 Depression Total Score: 7 06/28/20 25 12:54 PM EST PHQ-2 Depression Total Score: 2 06/28/20 25 12:54 PM EST documented as of this encounter Care Teams Heel Cutter Relationship Specialty Start Date End Date Shannan Drake CNP [address] [place] [address], [address] [place] [address] [email or web address] PCP - General Family Medicine 03/26/23 documented as of this encounter Additional Source Comments The information contained in this document represents components of the legal health record. It is not the complete legal health record.[facility]
== END 2025-07-16 15:50 | disposition home or self-care (01) ==
LOC: HO.HSM 15:29
PROVIDERS: PCP Internal Medicine; Visit Provider Nurse Practitioner
DX: G43.009 Migraine without aura, not intractable, without status migrainosus (principal)
CPT/HCPCS: 99213